=== PATIENT | female | born 1960 | race Caucasian/White ===

== ENCOUNTER 2019-07-04 13:52 | Outpatient (CLI) | payer OTHER, SELFPAY ==
--- NOTE | 2019-07-04 | XR_ITS ---
WS: [id number] LATERAL CERVICAL SPINE: 3 view. Lateral radiographs are performed in upright neutral, flexion and extension to the patient's toleranc e. HISTORY: DEGENERATIVE DISC DISEASE COMPARISON: None available. Limited evaluation of the cervical spine due to shoulders obscuring the lower cervical vertebrae. Nor mal alignment C1-C5. No instability is demonstrated. XR/XR cervical spine fl/ex [id number] IMPRESSION: No cervical instability from C1 to C5. Lower cervical vertebrae are obscured by the patient's shoulders.
== END 2019-07-04 13:53 | disposition home or self-care (01) ==
PROVIDERS: Family Provider Nurse Practitioner Family; PCP Nurse Practitioner Family; Visit Provider Nurse Practitioner Family
DX: M50.30 Other cervical disc degeneration, unspecified cervical region (principal)
CPT/HCPCS: 72040

== ENCOUNTER → 2020-01-19 11:23 | Outpatient (BNVA) | payer OTHER, SELFPAY | PROVIDERS: Family Provider Nurse Practitioner Family; PCP Nurse Practitioner Family; Visit Provider Nurse Practitioner Family | DX: E11.9 Type 2 diabetes mellitus without complications (principal); I10 Essential (primary) hypertension; E78.2 Mixed hyperlipidemia; M25.511 Pain in right shoulder; E55.9 Vitamin D deficiency, unspecified; R42 Dizziness and giddiness; R51 Headache; Z82.49 Family history of ischemic heart disease and other diseases of the circulatory system | CPT/HCPCS: 73030; 80053; 80061; 81001; 82306; 83036; 84443; 85025 ==

== ENCOUNTER 2020-01-26 08:00 | Outpatient (CLI) | payer OTHER, SELFPAY | END 2020-01-26 09:00 | disposition home or self-care (01) | LOC: RADWPI 02-17 16:47 | PROVIDERS: Family Provider Nurse Practitioner Family; PCP Nurse Practitioner Family; Visit Provider Licensed Practical Nurse | DX: R31.9 Hematuria, unspecified (principal) | CPT/HCPCS: 81000; 81003 ==

== ENCOUNTER 2020-05-03 06:00 | Outpatient (CLI) | payer OTHER, SELFPAY | END 2020-05-03 06:01 | disposition home or self-care (01) | LOC: RADSHAW 02-15 14:02 | PROVIDERS: Family Provider Nurse Practitioner Family; PCP Nurse Practitioner Family; Visit Provider Nurse Practitioner Family | DX: N39.0 Urinary tract infection, site not specified (principal); A49.9 Bacterial infection, unspecified | CPT/HCPCS: 80053; 81003 ==

== ENCOUNTER → 2020-07-22 15:03 | Outpatient (BNVA) | payer OTHER, SELFPAY | PROVIDERS: Family Provider Nurse Practitioner Family; PCP Nurse Practitioner Family; Visit Provider Nurse Practitioner Family | DX: M25.561 Pain in right knee (principal); M17.11 Unilateral primary osteoarthritis, right knee; I10 Essential (primary) hypertension; E55.9 Vitamin D deficiency, unspecified; R31.9 Hematuria, unspecified; G89.29 Other chronic pain; E78.2 Mixed hyperlipidemia; E11.9 Type 2 diabetes mellitus without complications; J44.9 Chronic obstructive pulmonary disease, unspecified | CPT/HCPCS: 73562; 80053; 80061; 81003; 82306; 83036; 84443; 84550; 85025; 87086 ==

== ENCOUNTER → 2021-02-09 11:53 | Outpatient (BNVA) | payer OTHER, SELFPAY | PROVIDERS: Family Provider Nurse Practitioner Family; PCP Nurse Practitioner Family; Visit Provider Nurse Practitioner Family | DX: M19.90 Unspecified osteoarthritis, unspecified site (principal); M25.50 Pain in unspecified joint; E55.9 Vitamin D deficiency, unspecified; T63.461A Toxic effect of venom of wasps, accidental (unintentional), initial encounter; G89.29 Other chronic pain; E78.2 Mixed hyperlipidemia; I10 Essential (primary) hypertension; E11.9 Type 2 diabetes mellitus without complications | CPT/HCPCS: 80053; 80061; 81003; 82306; 83036; 83735; 84100; 84443; 85025 ==

== ENCOUNTER 2021-04-01 14:15 | Outpatient (CLI) | payer OTHER, SELFPAY ==
--- NOTE | 2021-04-01 14:24 | XR_ITS ---
WS: [id number] RIBS LEFT TECHNIQUE: 3 views left ribs CLINICAL INFORMATION: R07.81 - Pleurodynia COMPARISON: None. FINDINGS: Osteopenia. Left ribs are normal in appearance. No definite visualized acute left rib fractures. Imag es are somewhat limited due to body habitus. Left lung is well aerated. Cardiomegaly. Hypertrophic changes thoracic spine. XR/XR ribs LT 2V* [id number] IMPRESSION: No visualized left rib fractures
== END 2021-04-01 14:16 | disposition home or self-care (01) ==
PROVIDERS: PCP Nurse Practitioner Family; Visit Provider Family Medicine
DX: R07.81 Pleurodynia (principal)
CPT/HCPCS: 71100

== ENCOUNTER → 2021-09-26 14:38 | Outpatient (BNVA) | payer OTHER, SELFPAY | PROVIDERS: PCP Nurse Practitioner Family; Visit Provider Nurse Practitioner Family | DX: J22 Unspecified acute lower respiratory infection (principal); E55.9 Vitamin D deficiency, unspecified; E11.9 Type 2 diabetes mellitus without complications; M19.90 Unspecified osteoarthritis, unspecified site; M25.50 Pain in unspecified joint; G89.29 Other chronic pain; E78.2 Mixed hyperlipidemia; I10 Essential (primary) hypertension | CPT/HCPCS: 80053; 80061; 81003; 82306; 83036; 84443; 85025 ==

== ENCOUNTER 2021-11-22 10:21 | Outpatient (CLI) | payer OTHER, SELFPAY ==
--- NOTE | 2021-11-22 10:30 | XR_ITS ---
WS: [id number] Exam: XR hand LT 2V [id number] Date/Time of Exam: 11/22/2021 10:37 AM Reason For Exam: M25.541 - Pain in joints of right hand No fracture or dislocation noted. Moderate degenerative changes in the DIP joints of the fifth second through the fifth fingers. Normal soft tissues. XR/XR hand LT 2V [id number] IMPRESSION: 1. Degenerative changes in the second through the fifth DIP joints. 2. No fracture.
--- NOTE | 2021-11-22 10:30 | XR_ITS ---
WS: [id number] Exam: XR hand RT 2V [id number] Date/Time of Exam: 11/22/2021 10:45 AM Reason For Exam: M25.541 - Pain in joints of right hand No fracture or dislocation. Mild degenerative changes in the DIP joints of the second through the fif th fingers. Normal soft tissues. XR/XR hand RT 2V [id number] IMPRESSION: 1. Degenerative changes in the DIP joints of the second through the fifth finge rs.
--- NOTE | 2021-11-22 10:30 | XR_ITS ---
WS: [id number] Exam: XR knee LT 3V* [id number] Date/Time of Exam: 11/22/2021 10:37 AM Reason For Exam: M25.541 - Pain in joints of right hand No fracture or dislocation. Mild degenerative thinning of the medial joint compartment. Spurring of t he posterior patella. No joint effusion seen. Marginal osteophytes along the distal femur and upper t ibia. XR/XR knee LT 3V* [id number] IMPRESSION: 1. No fracture or joint effusion. 2. Degenerative changes as detailed above.
--- NOTE | 2021-11-22 10:30 | XR_ITS ---
WS: [id number] Exam: XR knee RT 3V* [id number] Date/Time of Exam: 11/22/2021 10:37 AM Reason For Exam: M25.541 - Pain in joints of right hand Comparison 07/22/2020. No fracture or dislocation. There is degenerative narrowing of the medial joint compartment. Effusion in the suprapatellar bursa. Spurring of the posterior patella. XR/XR knee RT 3V* [id number] IMPRESSION: 1. Degenerative changes as noted above. No fracture noted. 2. Joint effusion in the suprapatellar bursa.
--- NOTE | 2021-11-22 10:30 | XR_ITS ---
WS: [id number] Exam: XR lumbar spine 2-3V* [id number] Date/Time of Exam: 11/22/2021 10:37 AM Reason For Exam: M25.541 - Pain in joints of right hand comparison 06/03/2019. No fracture or dislocation. Slight degenerative thinning of the L1-2, L4-5 and L5-S1 discs. Mild spon dylosis. Facet DJD at L4-5 and L5-S1. Slight levoscoliosis. 15 mm calcification identified in the reg ion of the left kidney and might represent a renal calculus. XR/XR lumbar spine 2-3V* [id number] IMPRESSION: 1. Degenerative changes and slight scoliosis. No fracture or malalignment. 2. 15 mm calcification seen in the left abdomen that might represent a renal ca lculus.
[2021-11-22 12:03] LABS: Erythrocyte Sedimentation Rate 8 mm/hr (0-15)
[2021-11-23 12:32] LABS: COMPLEMENT COMPONENT C3C 157 mg/dL (83-193); COMPLEMENT COMPONENT C4C 32 mg/dL (15-57)
[2021-11-23 14:03] LABS: CENTROMERE B ANTIBODY <1.0 NEG AI (<1.0 NEG); JO-1 ANTIBODY <1.0 NEG AI (<1.0 NEG); RNP ANTIBODY <1.0 NEG AI (<1.0 NEG); SCL-70 ANTIBODY <1.0 NEG AI (<1.0 NEG); SJOGREN'S ANTIBODY (SS-A) <1.0 NEG AI (<1.0 NEG); SM ANTIBODY <1.0 NEG AI (<1.0 NEG); SS-B <1.0 NEG AI (<1.0 NEG)
[2021-11-23 14:27] LABS: COMPLEMENT, TOTAL (CH50) >60 U/mL (31-60)
[2021-11-23 15:26] LABS: THYROID PEROXIDASE ANTIBODIES <1 IU/mL (<9)
[2021-11-23 17:42] LABS: ANA SCREEN, IFA NEGATIVE (NEGATIVE)
[2021-11-24 10:23] LABS: DNA AB (DS) CRITHIDIA,IFA NEGATIVE (NEGATIVE)
== END 2021-11-22 10:22 | disposition home or self-care (01) ==
PROVIDERS: PCP Family Medicine; Visit Provider Family Medicine
DX: G89.29 Other chronic pain (principal); M25.541 Pain in joints of right hand; M25.542 Pain in joints of left hand; M25.561 Pain in right knee; M25.562 Pain in left knee; M54.16 Radiculopathy, lumbar region; M54.42 Lumbago with sciatica, left side; M47.817 Spondylosis without myelopathy or radiculopathy, lumbosacral region; M25.461 Effusion, right knee; M76.51 Patellar tendinitis, right knee
CPT/HCPCS: 72100; 73120; 73562; 85651; 86160; 86162; 86235; 86255; 86376; 86431

== ENCOUNTER → 2022-02-09 14:25 | Outpatient (BNVA) | payer OTHER, SELFPAY | PROVIDERS: PCP Family Medicine; Visit Provider Internal Medicine | DX: M19.90 Unspecified osteoarthritis, unspecified site (principal); M45.0 Ankylosing spondylitis of multiple sites in spine; M25.9 Joint disorder, unspecified; M25.541 Pain in joints of right hand; M25.542 Pain in joints of left hand; L40.9 Psoriasis, unspecified; Z79.899 Other long term (current) drug therapy | CPT/HCPCS: 36415; 71046; 72072; 72202; 82310; 82550; 82607; 82728; 82784; 83516; 83735; 83970; 84100; 84155; 84165; 85651; 86140; 86618; 86666; 86704; 86757; 86803; 86812; 87340 ==

== ENCOUNTER 2023-01-15 15:52 | Emergency (ER) | payer OTHER, SELFPAY ==
[2023-01-15 16:09] VITALS: BP 124/61; PULSE 61; RESP 18; TEMP 36.4; O2SAT 95; BMI 38.2
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
[2023-01-15] MEDS: HYDROcodone-acetaminophen 10-325 mg Tablet 1 TAB PO (18:07)
[2023-01-15] MEDS: ketorolac 30 mg/mL INJ IM (18:08)
[2023-01-15] MEDS: dexamethasone 10 mg/mL INJ IM (18:09)
== END 2023-01-15 18:14 | disposition home or self-care (01) ==
PROVIDERS: Emergency Provider Nurse Practitioner Family; PCP Family Medicine
DX: M51.17 Intervertebral disc disorders with radiculopathy, lumbosacral region (principal); Z79.82 Long term (current) use of aspirin; Z87.891 Personal history of nicotine dependence; J44.9 Chronic obstructive pulmonary disease, unspecified; E11.9 Type 2 diabetes mellitus without complications; I10 Essential (primary) hypertension; E78.2 Mixed hyperlipidemia
CPT/HCPCS: 96372; 99284; J1100; J1885

== ENCOUNTER → 2023-03-02 17:41 | Outpatient (BNVA) | payer OTHER, SELFPAY | PROVIDERS: PCP Family Medicine; Visit Provider Emergency Medicine | DX: S69.91XA Unspecified injury of right wrist, hand and finger(s), initial encounter (principal); W29.4XXA Contact with nail gun, initial encounter; L03.113 Cellulitis of right upper limb; X58.XXXA Exposure to other specified factors, initial encounter | CPT/HCPCS: 73130 ==

== ENCOUNTER 2023-03-09 06:00 | Outpatient (CLI) | payer OTHER, SELFPAY | END 2023-03-09 06:01 | disposition home or self-care (01) | LOC: SOT 03-12 14:09 | PROVIDERS: PCP Family Medicine; Visit Provider Physician Assistant | DX: Z46.89 Encounter for fitting and adjustment of other specified devices (principal); T14.8XXA Other injury of unspecified body region, initial encounter | CPT/HCPCS: 97760; L3807 ==

== ENCOUNTER → 2023-03-09 09:21 | Outpatient (BNVA) | payer OTHER, SELFPAY | PROVIDERS: PCP Family Medicine; Referring Provider Emergency Medicine; Visit Provider Physician Assistant | DX: S62.111A Displaced fracture of triquetrum [cuneiform] bone, right wrist, initial encounter for closed fracture; W55.32XA Struck by other hoof stock, initial encounter | CPT/HCPCS: 73130 ==

== ENCOUNTER → 2023-07-03 14:50 | Outpatient (BNVA) | payer OTHER, SELFPAY | PROVIDERS: PCP Family Medicine; Visit Provider Nurse Practitioner Family | DX: E11.9 Type 2 diabetes mellitus without complications (principal); E78.2 Mixed hyperlipidemia; I10 Essential (primary) hypertension; M19.90 Unspecified osteoarthritis, unspecified site; E55.9 Vitamin D deficiency, unspecified; N20.0 Calculus of kidney; N13.8 Other obstructive and reflux uropathy; R10.9 Unspecified abdominal pain; Z87.442 Personal history of urinary calculi; H66.90 Otitis media, unspecified, unspecified ear | CPT/HCPCS: 80053; 80061; 81003; 82306; 83036; 84443; 85025; 85651; 86140 ==

== ENCOUNTER 2023-07-15 13:21 | Emergency (ER) | payer OTHER, SELFPAY ==
[2023-07-15 13:43] VITALS: BP 153/80; PULSE 79; RESP 16; TEMP 37.1; O2SAT 98; BMI 46.1
[2023-07-15 14:34] LABS: Basophils % 0.2 %; Eosinophils # 0.1 10^3/uL (0.0-0.8); Eosinophils % 0.9 %; Hematocrit 50.2 % (36-47); Lymphocytes # 0.3 10^3/uL (0.8-4.8); Lymphocytes % 3.7 %; Mean Corpuscular HGB Conc 31.7 g/dL (30-55); Mean Corpuscular Hemoglobin 29.9 pg (27-33); Mean Corpuscular Volume 94.4 fl (85-98); Mean Platelet Volume 11.8 fL (7.4-10.4); Monocytes # 0.4 10^3/uL (0.2-0.9); Monocytes % 4.5 %; Neutrophils # 8.32 10^3/uL (1.8-7.7); Neutrophils % 90.4 %; Nucleated Red Blood Cells % 0 %; Platelet Count 216 10^3/cmm (157-399); Red Blood Count 5.32 10^6/uL (3.85-5.65); Red Cell Distribution Width 12.8 % (12.1-15.1)
[2023-07-15 14:55] LABS: Alanine Aminotransferase 21 U/L (0-33); Albumin Level 3.9 g/dL (3.5-5.2); Alkaline Phosphatase 66 U/L (35-105); Blood Urea Nitrogen 28 mg/dL (8-23); Calcium 9.4 mg/dL (8.5-10.5); Carbon Dioxide 21 mmol/L (22-29); Chloride 100 mmol/L (98-107); Glomerular Filtration Rate 100.6 mL/min (90-130); Glucose 173 mg/dL (65-115); Lipase 19 U/L (13-60); Osmolality Calculated 290 mOsm/kg (285-295); Sodium 135 mmol/L (136-145); Total Bilirubin 0.6 mg/dL (0.15-1.2); Total Protein 6.9 g/dL (6.6-8.7)
[2023-07-15 14:57] LABS: Anion Gap 18.5 (5-19); Aspartate Amino Transferase 22 U/L (0-32); Potassium 4.5 mmol/L (3.5-5.1)
--- NOTE | 2023-07-15 15:48 | W.ED.ABDPA2 ---
HPI - Abdominal Pain General: Chief Complaint: Abdominal Pain Stated Complaint: abd pain, N/V/D Time Seen by Provider: 07/15/23 15:36 History of Present Illness: 63-year-old female presents emergency department with complaints of left lower quadrant abdominal pain. She states she started having several episodes of nausea and vomiting last night and is continued since this morning. She states she started having diarrhea last night as well and is continued she states the diarrhea is watery diarrhea without blood or mucus and has approximately 8 bowel movements. She states she did eat a steak last night and approximately 6 hours after eating the steak she started feeling nauseated and had several episodes of vomiting. She feels like she may have food poisoning from the steak. She states she is also having sulfur smelling odor when she burps. She states she has also been recently diagnosed with a 1.6 cm left kidney stone and she states that this does not feel like that type of pain. She states her abdominal pain is a 4 out of 10 intermittent cramping. She denies fevers chills or night sweats at present. Associated Symptoms: Reports diarrhea, nausea and vomiting Review of Systems General: Reports: 10 or more systems reviewed and unremarkable except in HPI and below GI: Reports: abdominal pain, nausea, vomiting and diarrhea [facility] ED PFSH: Medical History (Updated 07/15/23 @ 19:33 by Santana Champion MD) Otitis media Flank pain with history of urolithiasis Urinary tract obstruction due to kidney stone Lower respiratory infection Right leg pain Arthritis Chronic joint pain Hematuria COPD (chronic obstructive pulmonary disease) UTI (urinary tract infection), bacterial Acromioclavicular joint pain Acute joint pain Family history of aneurysm Headache AC joint pain Vertigo Mixed hyperlipidemia Essential hypertension Diabetes mellitus, type II Vitamin D deficiency Intervertebral disc 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 Vital signs as documented. No acute distress at present. Alert and oriented-to person, place, time and situation. Head, eyes, ears, nose, mouth, throat: Normocephalic, atraumatic. Pupils-equal, round, reactive to light. No scleral icterus. Normal-appearing external ears. Normal appearing nasal turbinates, no drainage. No obvious oral lesions, posterior oropharynx without erythema or exudates. Neck: Supple, trachea is midline, no lymphadenopathy, no jugular venous distension, thyromegaly, or carotid bruits. Carotid upstrokes are brisk bilaterally. Lungs: clear to auscultation to all lung thomas. Symmetrical rise and fall of chest, no obvious signs of increased work of breathing at present. Cardiac: Regular rate and rhythm, positive S1, S2. No murmurs, rubs or gallops that I can appreciate Abdomen: Soft, non-tender to palpation, normal active bowel sounds to all quadrants. No palpable masses, no organomegaly and abdominal bruits. Extremities: 2+ pulses in the upper extremities that are equal bilaterally, 2+ pulses in the lower extremities that are equal bilaterally. Non-edematous. Moves all extremities well, sensation to all extremities are noted. Skin: Warm, dry, intact. Course Vital Signs: Vital signs: Vital Signs Temperature 98.7 F 07/15/23 13:43 Pulse Rate 78 07/15/23 18:39 Respiratory Rate 16 07/15/23 13:43 Blood Pressure 133/73 07/15/23 18:39 Pulse Oximetry 94 07/15/23 18:39 Oxygen Delivery Me thod Room Air 07/15/23 18:39 MDM - Abdominal Pain Medical Decision Making 63-year-old female presents to the emergency department with complaints of abdominal pain she has type 2 diabetes and recent diagnosis of renal calculi to the left. I will obtain laboratory evaluation to include a CBC and CMP, lipase and we will provide Toradol pain medication as well as Zofran for nausea. I will obtain a CT scan with IV contrast given her complaints of abdominal cramping I do not suspect this is related to her recent diagnosis of kidney stone. Medical Records I reviewed the patient's medical records. Lab Data I reviewed the patient's lab results. 07/15/23 14:17 07/15/23 14:17 Labs/Radiology: Radiology Impressions Abdomen/Pelvis CT 07/15/23 15:55 IMPRESSION: 1. No acute findings within the abdomen or pelvis. 2. Multiple bilateral non-obstructing renal stones. 3. Additional nonemergent findings as above. COMMENTS: Consistent with the [employer]'s Incidental Findings Committee white paper (J Am Jessi Radiol 2018): Any incidental renal lesion less than 1 cm or classified as too small to characterize, or any incidental cystic renal lesion characterized as simple-appearing, is likely benign. No follow-up imaging is recommended for these lesions per consensus recommendations based on imaging criteria. Laboratory Results WBC 9.20 10^3/uL (3.29-11.43) 07/15/23 14:17 RBC 5.32 10^6/uL (3.85-5.65) 07/15/23 14:17 Hgb 15.90 g/dL (11.27-16.99) 07/15/23 14:17 Hct 50.2 % (36-47) H 07/15/23 14:17 MCV 94.4 fl (85-98) 07/15/23 14:17 MCH 29.9 pg (27-33) 07/15/23 14:17 MCHC 31.7 g/dL (30-55) 07/15/23 14:17 RDW 12.8 % (12.1-15.1) 07/15/23 14:17 Plt Count 216 10^3/cmm (157-399) 07/15/23 14:17 MPV 11.8 fL (7.4-10.4) H 07/15/23 14:17 Neut % (Auto) 90.4 % 07/15/23 14:17 Lymph % (Auto) 3.7 % 07/15/23 14:17 [place] % (Auto) 4.5 % 07/15/23 14:17 Eos % (Auto) 0.9 % 07/15/23 14:17 Baso % (Auto) 0.2 % 07/15/23 14:17 Neut # (Auto) 8.32 10^3/uL (1.8-7.7) H 07/15/23 14:17 Lymph # (Auto) 0.3 10^3/uL (0.8-4.8) L 07/15/23 14:17 [place] # (Auto) 0.4 10^3/uL (0.2-0.9) 07/15/23 14:17 Eos # (Auto) 0.1 10^3/uL (0.0-0.8) 07/15/23 14:17 Baso # (Auto) 0.0 10^3/uL (0.0-0.1) 07/15/23 14:17 Nucleated RBC % (auto) 0 % 07/15/23 14:17 Nucleated RBCs # 0.0 /100WBC 07/15/23 14:17 Sodium 135 mmol/L (136-145) L 07/15/23 14:17 Potassium 4.5 mmol/L (3.5-5.1) 07/15/23 14:17 Chloride 100 mmol/L (98-107) 07/15/23 14:17 Carbon Dioxide 21 mmol/L (22-29) L 07/15/23 14:17 Anion Gap 18.5 (5-19) 07/15/23 14:17 BUN 28 mg/dL (8-23) H 07/15/23 14:17 Creatinine 0.6 mg/dL (0.5-0.9) 07/15/23 14:17 GFR Calculation 100.6 mL/min (90-130) 07/15/23 14:17 Glucose 173 mg/dL (65-115) H 07/15/23 14:17 Calculated Osmolality 290 mOsm/kg (285-295) 07/15/23 14:17 Calcium 9.4 mg/dL (8.5-10.5) 07/15/23 14:17 Total Bilirubin 0.6 mg/dL (0.15-1.2) 07/15/23 14:17 AST 22 U/L (0-32) 07/15/23 14:17 ALT 21 U/L (0-33) 07/15/23 14:17 Alkaline Phosphatase 66 U/L (35-105) 07/15/23 14:17 Total Protein 6.9 g/dL (6.6-8.7) 07/15/23 14:17 Albumin 3.9 g/dL (3.5-5.2) 07/15/23 14:17 Globulin 3.0 g/dL (1.3-4.6) 07/15/23 14:17 Lipase 19 U/L (13-60) 07/15/23 14:17 Urine Color Yellow (Yellow) 07/15/23 16:10 Urine Appearance Sl hazy (CLEAR) A 07/15/23 16:10 Urine pH 6 (5-7) 07/15/23 16:10 Ur Specific [place] 1.015 (1.005-1.030) 07/15/23 16:10 Urine Protein Trace (Negative) 07/15/23 16:10 Urine Glucose (UA) Norm (Normal) 07/15/23 16:10 Urine Ketones Negative (Negative) 07/15/23 16:10 Urine Blood Neg (Negative) 07/15/23 16:10 Urine Nitrate Negative (Negative) 07/15/23 16:10 Urine Bilirubin Neg (Negative) 07/15/23 16:10 Urine Urobilinogen Norm mg/dL (Negative) 07/15/23 16:10 Ur Leukocyte Esterase Negative (Negative) 07/15/23 16:10 Urine RBC None /hpf (0-2) 07/15/23 16:10 Urine WBC 5-10 /hpf (0-5) H 07/15/23 16:10 Ur Squamous Epith Cells 5-10 /hpf (0-5) H 07/15/23 16:10 Amorphous Sediment Not Reportable 07/15/23 16:10 Urine Bacteria 2+ /hpf (NONE) H 07/15/23 16:10 All radiology interpretation(s) finalized by discharge Discharge Plan Discharge Patient Disposition: Home Clinical Impression: Abdominal pain, Kidney calculi, Diarrhea Condition: Stable Prescriptions: No Action aspirin 81 mg tablet,delayed release (DR/EC) 81 mg PO DAILY albuterol sulfate 90 mcg/actuation HFA aerosol inhaler 2 puff inhalation Q6H PRN (Reason: shortness of breath or wheezing) Qty: 8.5 5RF Rx Instructions: 340 b (DME) fastform splint See Rx Instructions .Route .MEDSUPPLY Qty: 1 0RF Rx Instructions: As directed folic acid 1 mg tablet 1 mg PO DAILY Qty: 90 0RF tamsulosin 0.4 mg capsule PO ondansetron 8 mg tablet,disintegrating 8 mg PO TID PRN (Reason: nausea and vomiting) hydrocodone-acetaminophen 10-325 mg tablet 1 tab PO BID PRN (Reason: pain) 5 Days Qty: 10 0RF ciprofloxacin HCl [Cipro] 250 mg tablet 250 mg PO BID 10 Days Qty: 20 0RF Ozempic 0.25 mg or 0.5 mg (2 mg/3 mL) pen injector 0.25 mg SUBCUT ONCE 28 Days Qty: 3 1RF (DME) pen needle, diabetic [Comfort EZ Pen [place]] 33 gauge x 5/32 needle See Rx Instructions .Route Qty: 100 0RF Rx Instructions: As directed meclizine 25 mg tablet 25 mg PO BID PRN (Reason: dizziness) 30 Days Qty: 60 0RF naproxen 250 mg tablet See Rx Instructions .ROUTE .COMPLEX Qty: 180 0RF Dose Instruction: TAKE 1 TABLET BY MOUTH TWICE DAILY NEEDED FOR PAIN Rx Instructions: TAKE 1 TABLET BY MOUTH TWICE DAILY NEEDED FOR PAIN cholecalciferol (vitamin D3) 1,250 mcg (50,000 unit) capsule 1,250 mcg PO .weekly 90 Days Qty: 12 2RF gabapentin 800 mg tablet See Rx Instructions .ROUTE .COMPLEX Qty: 90 0RF Dose Instruction: TAKE 1 TABLET BY MOUTH THREE TIMES DAILY Rx Instructions: TAKE 1 TABLET BY MOUTH THREE TIMES DAILY duloxetine [Cymbalta] 60 mg capsule,delayed release(DR/EC) 60 mg PO DAILY Qty: 60 2RF fenofibrate 160 mg tablet See Rx Instructions .ROUTE .COMPLEX Qty: 90 0RF Dose Instruction: TAKE 1 TABLET BY MOUTH DAILY Rx Instructions: TAKE 1 TABLET BY MOUTH DAILY lisinopril-hydrochlorothiazide 20-25 mg tablet See Rx Instructions .ROUTE .COMPLEX Qty: 90 0RF Dose Instruction: TAKE 1 TABLET BY MOUTH DAILY Rx Instructions: TAKE 1 TABLET BY MOUTH DAILY lovastatin 20 mg tablet See Rx Instructions .ROUTE .COMPLEX Qty: 90 1RF Dose Instruction: TAKE 1 TABLET BY MOUTH DAILY Rx Instructions: TAKE 1 TABLET BY MOUTH DAILY fluticasone propion-salmeterol [Wixela Inhub] 250-50 mcg/dose blister with device See Rx Instructions .ROUTE .COMPLEX Qty: 60 0RF Dose Instruction: INHALE 1 PUFF BY MOUTH TWICE DAILY Rx Instructions: INHALE 1 PUFF BY MOUTH TWICE DAILY Discharge Orders: Discharge ED (Routine); Ordered 07/15/23 Ordered By: Santana Champion Referrals: MIKEY Palumbo, MANAGER OF HOSPITAL [Primary Care Provider] - Discharge Diet: Advance as tolerated Discharge Activity: Resume usual activity Patient Instructions: Abdominal Pain (ED), Opioid Safety, Pain Management Activity Restrictions/Additional Instructions: Activity Restrictions/Additional Instructions: Thank you for choosing [facility] for your healthcare needs today. Please realize that you were seen in the Emergency Department and that we are providing you with an emergency medical screening exam and this may not be a complete and all inclusive of all the testing and or medical work-up that you may need to determine your ailment or severity of your illness. It is very important that you follow-up as instructed with your Primary care provider or Specialist for additional evaluation and to discuss your medical treatment plan. You may return to the Emergency Department should you have concerns or if your condition changes or worsens in any way. Coding Level of Care Code ED Executive Marketing Assistant for Jamila Forte
--- NOTE | 2023-07-15 15:55 | CTR_ITS ---
PROCEDURE INFORMATION: Exam: CT Abdomen And Pelvis With Contrast Exam date and time: 07/15/2023 4:42 PM Age: 63 years old Clinical indication: Abdominal pain; Generalized; Prior surgery; Surgery date: 6+ months; Surgery type: Gb; Additional info: Abd pain TECHNIQUE: Imaging protocol: Computed tomography of the abdomen and pelvis with contrast. Radiation optimization: All CT scans at this facility use at least one of these dose optimization techniques: automated exposure control; mA and/or kV adjustment per patient size (includes targeted exams where dose is matched to clinical indication); or iterative reconstruction. Contrast material: OMNI 350; Contrast volume: 100 ml; Contrast route: INTRAVENOUS (IV); COMPARISON: CR XR hip BI m 5V wo/w pel* [id number] 06/03/2019 3:13 PM RADIATION DOSE METRICS: Total DLP (mGy-cm): 1259.39 FINDINGS: Lungs: Lung bases are clear. Liver: Liver is mildly enlarged with diffuse fatty infiltration present. Gallbladder and bile ducts: Gallbladder has been removed. Bile ducts are not appreciably dilated. Pancreas: Unremarkable. Main pancreatic duct is not significantly dilated. Spleen: Normal. No splenomegaly. Adrenal glands: Normal. No mass. Kidneys and ureters: 1.3 cm nonobstructing stone within the left renal pelvis. Multiple small nonobstructing calculi within the right renal hilum. Few tiny cortical cysts both kidneys. Stomach and bowel: Scattered diverticuli large bowel without evidence of diverticulitis. Appendix: No evidence of appendicitis. Intraperitoneal space: Unremarkable. No free air. No significant fluid collection. Vasculature: Scattered atherosclerotic changes of the abdominal aorta and iliac vessels. No aortic aneurysm. Lymph nodes: Unremarkable. No enlarged lymph nodes. Urinary bladder: Unremarkable as visualized. Reproductive: Uterus has been removed. Bones/joints: Mild-moderate multilevel degenerative changes throughout the lumbar spine. No acute bony abnormalities. Soft tissues: Unremarkable. CT/CT abdomen pelvis w con* [id number] IMPRESSION: 1. No acute findings within the abdomen or pelvis. 2. Multiple bilateral non-obstructing renal stones. 3. Additional nonemergent findings as above. COMMENTS: Consistent with the [employer]'s Incidental Findings Committee white paper (J Am Jessi Radiol 2018): Any incidental renal lesion less than 1 cm or classified as too small to characterize, or any incidental cystic renal lesion characterized as simple-appearing, is likely benign. No follow-up imaging is recommended for these lesions per consensus recommendations based on imaging criteria.
[2023-07-15] MEDS: sodium chloride 0.9% 1,000 ML 999 ML IV (16:05)
--- NOTE | 2023-07-15 16:08 | PC.NURSE ---
ASSUMED CARE AT 1550
[2023-07-15] MEDS: ondansetron 2 mg/ML SDV 2 mL 4 MG IVP (16:11)
[2023-07-15] MEDS: ketorolac 30 mg/mL INJ IVP (16:11)
[2023-07-15 16:15] VITALS: BP 129/76; PULSE 74; O2SAT 98
[2023-07-15 16:27] LABS: Protein Urine Trace (Negative); Specific Gravity, Urine 1.015 (1.005-1.030); Urine Appearance SL Hazy (CLEAR); Urine Color Yellow (Yellow); pH Urine 6 (5-7)
[2023-07-15 16:28] LABS: Add Urine Culture? No; Add Urine Microscopic? YES; Bacteria Urine 2+ /hpf; Bilirubin Urine Neg (Negative); Blood Urine Neg (Negative); Glucose Urine UA Norm (Normal); Ketones Urine Negative (Negative); Leukocyte Esterase Urine Negative (Negative); Nitrate Urine Negative (Negative); Urobilinogen Urine Norm (Negative)
[2023-07-15 16:30] VITALS: BP 149/62; PULSE 78; O2SAT 94
[2023-07-15] MEDS: iohexol 350 mg/mL 500 mL Btl (per mL) IV (16:45)
[2023-07-15 17:47] VITALS: BP 152/70; PULSE 82; O2SAT 94
[2023-07-15 18:39] VITALS: BP 133/73; PULSE 78; O2SAT 94
[2023-07-15] MEDS: simethicone 80 mg Chew PO (19:55)
[2023-07-15 19:57] VITALS: PULSE 76; RESP 18; O2SAT 94
== END 2023-07-15 19:57 | disposition home or self-care (01) ==
PROVIDERS: Physician Assistant; Emergency Provider Internal Medicine; PCP Nurse Practitioner Family
DX: N20.0 Calculus of kidney (principal); R19.7 Diarrhea, unspecified; Z79.82 Long term (current) use of aspirin; Z87.891 Personal history of nicotine dependence; Z87.442 Personal history of urinary calculi; J44.9 Chronic obstructive pulmonary disease, unspecified; E78.2 Mixed hyperlipidemia; I10 Essential (primary) hypertension; E11.9 Type 2 diabetes mellitus without complications
CPT/HCPCS: 36415; 74177; 80053; 81001; 83690; 85025; 96361; 96374; 96375; 99285; J1885; J2405; J7030; Q9967

== ENCOUNTER → 2024-03-24 16:00 | Outpatient (BNVA) | payer OTHER, MEDICARE, SELFPAY | PROVIDERS: PCP Nurse Practitioner Family; Visit Provider Nurse Practitioner Family | DX: I10 Essential (primary) hypertension (principal); E78.2 Mixed hyperlipidemia; E11.9 Type 2 diabetes mellitus without complications; E55.9 Vitamin D deficiency, unspecified; M10.9 Gout, unspecified | CPT/HCPCS: 80053; 80061; 81003; 82306; 83036; 83735; 84100; 84443; 84550; 85025; 85651; 86140 ==

== ENCOUNTER 2024-04-01 08:10 | Outpatient (CLI) | payer MEDICARE, OTHER, SELFPAY ==
--- NOTE | 2024-04-01 08:16 | XR_ITS ---
WS: [id number] Exam: XR lumbar spine 6V w f/e [id number] Date/Time of Exam: 04/01/2024 8:37 AM Reason For Exam: S39.012A - Strain of muscle, fascia and tendon of lower b... No fracture or dislocation. Degenerative disc changes and spondylosis at all levels. Facet DJD at all levels. No significant flexion or extension instability. Mild levoscoliosis. XR/XR lumbar spine 6V w f/e [id number] IMPRESSION: 1. Degenerative changes and mild levoscoliosis. 2. No flexion or extension instability identified.
== END 2024-04-01 08:11 | disposition home or self-care (01) ==
LOC: RAD 08:13
PROVIDERS: PCP Nurse Practitioner Family; Visit Provider Nurse Practitioner Family
DX: M51.369 Other intervertebral disc degeneration, lumbar region without mention of lumbar back pain or lower extremity pain (principal); M47.896 Other spondylosis, lumbar region
CPT/HCPCS: 72114

== ENCOUNTER → 2024-04-28 15:23 | Outpatient (BNVA) | payer MEDICARE, OTHER, SELFPAY | PROVIDERS: PCP Nurse Practitioner Family; Referring Provider Nurse Practitioner Family; Visit Provider Dermatology | DX: L73.8 Other specified follicular disorders (principal); D18.01 Hemangioma of skin and subcutaneous tissue; L82.1 Other seborrheic keratosis; L81.4 Other melanin hyperpigmentation; D48.5 Neoplasm of uncertain behavior of skin; L57.8 Other skin changes due to chronic exposure to nonionizing radiation; D23.5 Other benign neoplasm of skin of trunk; L91.8 Other hypertrophic disorders of the skin | CPT/HCPCS: 11102; 11200; 99203 ==

== ENCOUNTER 2024-06-19 11:51 | Observation (INO) | payer MEDICARE, OTHER, SELFPAY ==
[2024-06-19] VITALS (12 sets, daily range): BP systolic 129–168; BP diastolic 70–99; PULSE 67–105; RESP 16–24; TEMP 36.5–36.8; O2SAT 90–97; BMI 49.8
--- NOTE | 2024-06-19 12:04 | CT_ITS ---
WS: [id number] CT ABDOMEN PELVIS TECHNIQUE: Noncontrast CT of the abdomen and pelvis with coronal and sagittal reformatted images. CLINICAL INFORMATION: Left flank pain, history of kidney stones COMPARISON: 07/15/2023 DLP: 1136.[address] scans at [facility] use at least one of these dose optimization techniques: automated e xposure control; mA and/or kV adjustment per patient size (includes targeted exams where dose is matc hed to clinical indication); or iterative reconstruction. FINDINGS: Obstructing LEFT proximal ureteral calculus at the LEFT UPJ measuring 6 mm. This is new com pared to previous. Mild LEFT perinephric stranding and edema. Moderate LEFT hydronephrosis. Distal LE FT ureter is decompressed. Nonobstructing RIGHT renal parenchymal and calyceal tip calculi. No obstructing RIGHT renal or ureter al calculi. Lung bases are well aerated. Hepatomegaly. Diffuse fatty infiltration of the liver. Cholecystectomy c lips. Normal GE junction. Adrenal glands are normal. Noncontrast pancreas is normal. Normal noncontra st spleen. Prior appendectomy. Normal caliber abdominal aorta. Sigmoid diverticulosis. No evidence of acute diverticulitis. No evidence of high-grade small or large bowel obstruction. Moderate spondylitic changes lumbar spine. Disc narrowing worse L4-L5 and L5-S1. Prior hysterectomy. Prior cholecystectomy. CT/CT kidney stone [id number] IMPRESSION: 1. Obstructing 6 mm calculus LEFT UPJ with moderate LEFT hydronephrosis. Infla mmatory stranding and edema about the LEFT kidney. 2. No obstructing RIGHT renal or ureteral calculi. 3. Prior hysterectomy and cholecystectomy. 4. Hepatomegaly with diffuse fatty infiltration of the liver. Notified Dario Moon DO at 06/19/2024 1:12 PM.
[2024-06-19 12:47] LABS: Basophils # 0.1 10^3/uL (0.0-0.1); Basophils % 0.5 %; Eosinophils # 0.2 10^3/uL (0.0-0.8); Eosinophils % 1.4 %; Hematocrit 48.9 % (36-47); Lymphocytes # 1.6 10^3/uL (0.8-4.8); Lymphocytes % 13.5 %; Mean Corpuscular HGB Conc 31.9 g/dL (30-55); Mean Corpuscular Hemoglobin 29.8 pg (27-33); Mean Corpuscular Volume 93.5 fl (85-98); Mean Platelet Volume 11.5 fL (7.4-10.4); Monocytes # 0.9 10^3/uL (0.2-0.9); Neutrophils # 9.41 10^3/uL (1.8-7.7); Neutrophils % 77.3 %; Nucleated Red Blood Cells % 0 %; Platelet Count 245 10^3/cmm (157-399); Red Blood Count 5.23 10^6/uL (3.85-5.65); Red Cell Distribution Width 12.7 % (12.1-15.1); White Blood Count 12.17 10^3/uL (3.29-11.43)
[2024-06-19 13:09] LABS: Alanine Aminotransferase 21 U/L (0-33); Albumin Level 4.3 g/dL (3.5-5.2); Alkaline Phosphatase 68 U/L (35-105); Anion Gap 13.8 (5-19); Aspartate Amino Transferase 22 U/L (0-32); Blood Urea Nitrogen 25 mg/dL (8-23); Calcium 9.6 mg/dL (8.5-10.5); Carbon Dioxide 28 mmol/L (22-29); Chloride 102 mmol/L (98-107); Creatinine Clr Calc Pharmacy 88.0503; Globulin 2.9 g/dL (1.3-4.6); Glucose 158 mg/dL (65-115); Osmolality Calculated 298 mOsm/kg (285-295); Potassium 3.8 mmol/L (3.5-5.1); Sodium 140 mmol/L (136-145); Total Bilirubin 0.4 mg/dL (0.15-1.2); Total Protein 7.2 g/dL (6.6-8.7)
[2024-06-19 13:21] LABS: Bilirubin Urine Negative (Negative); Blood Urine Negative (Negative); Glucose Urine UA Negative (Normal); Ketones Urine Negative (Negative); Leukocyte Esterase Urine Negative (Negative); Nitrate Urine Negative (Negative); Protein Urine Trace (Negative); Urine Appearance Clear (CLEAR); Urine Color Yellow (Yellow); pH Urine 7.5 (5-7)
[2024-06-19 13:24] LABS: Add Urine Microscopic? YES; Bacteria Urine Trace /hpf; Hyaline Casts Urine 4.11 /lpf; WBC Urine 0-5 /hpf (0-5)
--- NOTE | 2024-06-19 13:34 | ED_ITS ---
HPI - Female Genitourinary 2 General: Chief complaint: Urogenital-Female Stated complaint: kidney problems Time Seen by Provider: 06/19/24 13:08 Source: patient Mode of arrival: ambulatory Limitations: no limitations History of Present Illness: Patient is a 64-year-old female with past medical history of kidney stones who presents the emergency department complaining of acute onset left back and flank pain beginning this morning. She is reporting 10/10 pain, sharp and shooting and comparable to kidney stones in the past. She is also had lithotripsy procedures performed for kidney stones, she sees urology Dr. Zhang. Reporting associated nausea, denies any dysuria or hematuria, abdominal pain at this time, lightheadedness or dizziness. Requesting something for pain. Oxygen here has been 89 to 91%, states that she is always having breathing difficulties and this is not new for her, she is laying on her back flat at this time and we will adjust her position accordingly once we get her pain in control. MD elicited complaint: back pain and flank pain Pertinent past history: other (Kidney stones) Onset (ago): hour(s) Location of symptoms: low back and flank Severity: severe Severity scale (1-10): 10 Quality of pain: sharp Consistency: constant Vaginal discharge: none Vaginal bleeding: none Associated symptoms: Reports nausea; Deny abdominal pain or headache(s) Treatment prior to arrival: none Related Data Home Medications Medication Instructions Recorded Confirmed aspirin 81 mg tablet,delayed 81 mg PO DAILY 09/26/19 06/19/24 release multivitamin (Daily Multi-Vitamin 1 tab PO DAILY 05/21/24 06/19/24 tablet) albuterol sulfate 90 mcg/actuation 2 puff inhalation Q6H 06/19/24 06/19/24 aerosol inhaler dulaglutide 0.75 mg/0.5 mL 0.75 mg SUBCUT Q7D 06/19/24 06/19/24 subcutaneous pen injector (Trulicity) fenofibrate 160 mg tablet 160 mg PO DAILY 06/19/24 06/19/24 fluticasone 250 mcg-salmeterol 50 1 inh inhalation BID 06/19/24 06/19/24 mcg/dose blistr powdr for inhalation (Wixela Inhub) gabapentin 800 mg tablet 800 mg PO TID 06/19/24 06/19/24 lisinopril 20 1 tab PO DAILY 06/19/24 06/19/24 mg-hydrochlorothiazide 25 mg tablet lovastatin 20 mg tablet 20 mg PO DAILY 06/19/24 06/19/24 Previous Rx's Medication Instructions Recorded meclizine 25 mg tablet 25 mg PO BID PRN dizziness 30 days 02/23/20 #60 tabs fastform splint #1 ea 03/09/23 pen needle, diabetic 33 gauge x #100 ea 07/12/23 (Comfort EZ [place]) cholecalciferol (vitamin D3) 1,250 1,250 mcg PO .weekly 90 days #12 03/19/24 mcg (50,000 unit) capsule caps duloxetine 60 mg capsule,delayed 60 mg PO DAILY #60 caps 04/21/24 release (Cymbalta) blood-glucose meter #1 ea 04/24/24 Allergies Allergy/AdvReac Type Severity Reaction Status Date / Time ampicillin Allergy unknown Verified 06/19/24 12:00 Review of Systems 2 General: Reports: 10 or more systems reviewed and unremarkable except in HPI and below Const: Denies: fever(s), chills, change in appetite, change in weight or diaphoresis ENMT: Denies: throat pain or hoarseness Card: Denies: chest pain, palpitations or lightheadedness Resp: Denies: dyspnea, productive cough or wheezing GI: Reports: nausea; Denies: abdominal pain, vomiting, diarrhea, constipation, bloating, change in stool character or hematochezia : Reports: flank pain; Denies: difficulty voiding, dysuria, urinary frequency, urinary urgency or hematuria Musc: Reports: back pain; Denies: neck pain Skin/Breast: Denies: rash or new lesions Neuro: Denies: headache(s) or dizziness PFSH ED 2 PFSH: Medical History Lumbar disc disease with radiculopathy DDD (degenerative disc disease), lumbar Lumbar radiculopathy Enrolled in chronic care management Gout Lumbar strain Epidermoid cyst Otitis media Flank pain with history of urolithiasis Urinary tract obstruction due to kidney stone Lower respiratory infection Right leg pain Arthritis Chronic joint pain Hematuria COPD (chronic obstructive pulmonary disease) UTI (urinary tract infection), bacterial Acromioclavicular joint pain Acute joint pain Family history of aneurysm Headache AC joint pain Vertigo Mixed hyperlipidemia Essential hypertension Diabetes mellitus, type II Vitamin D deficiency Intervertebral disc disorder with radiculopathy of lumbosacral region Cervical disc disorder with myelopathy of mid-cervical region Surgical History History of tubal ligation History of hysterectomy History of skin graft History of nasal surgery removal of excess cartilage from sinus cavity Family History Mother Hypertension Brother Aneurysm Social History Smoking and tobacco/nicotine status: former use of tobacco/nicotine Alcohol intake: never Substance/Drug Use: never Household members: spouse Marital status: Current occupational status: unemployed Physical Exam 2 Const: COMMON NORMALS: no acute distress, no limitations and well nourished GENERAL APPEARANCE: cooperative NUTRITIONAL APPEARANCE: obese morbidly obese ORIENTATION/CONSCIOUSNESS: Yes awake OTHER: Uncomfortable appearing secondary to pain Eye: COMMON NORMALS: Equal, round and reactive pupils present, EOMs intact bilaterally, conjunctivae normal and normal visual thomas by confrontation C ONJUNCTIVA: Yes conjunctivae normal PUPIL: Yes Equal, round and reactive pupils present Neck/C-Spine: COMMON NORMALS: full ROM, supple and no JVD Resp: COMMON NORMALS: normal respiratory effort, No retractions, No use of accessory muscles and clear to auscultation bilaterally AUSCULTATION: clear to auscultation bilaterally, no crackles, no rales, no rhonchi and no wheezes Cardio: COMMON NORMALS: no JVD, regular rate, regular rhythm, S1 normal heart sound present, S2 normal heart sound present, No gallops present (Cardio), No clicks present (Cardio), No murmurs present (Cardio), No rub (Cardio) and Peripheral pulses 2+ throughout RATE: regular rate RHYTHM: regular rhythm HEART SOUNDS: S1 normal heart sound present and S2 normal heart sound present PERIPHERAL PULSES: Peripheral pulses 2+ throughout GI: COMMON NORMALS: Normal to inspection, nondistended, normoactive bowel sounds present, Soft to palpation, non-tender, No hepatosplenomegaly present and no masses AUSCULTATION: Yes normoactive bowel sounds PALPATION: Yes Soft to palpation, No Guarding due to palpation present (GI), No Rigid due to palpation and Yes No hepatosplenomegaly present RECTAL EXAM: deferred : BLADDER/KIDNEY EXAM: Yes CVA tenderness on the left Back/Pelvis: GENERAL BACK: Yes CVA tenderness CVA tenderness: left Extremity: COMMON NORMALS: normal to inspection and full ROM Psych: COMMON NORMALS: mental status grossly normal, cooperative and speech normal SPEECH: Yes normal speech Skin: COMMON NORMALS: no rashes or lesions noted GENERAL SKIN EXAM: no rashes or lesions noted Course 2 Vital Signs: Vital signs: Vital Signs Temperature 97.7 F 06/19/24 11:57 Pulse Rate 68 06/19/24 15:30 Respiratory Rate 16 06/19/24 15:00 Blood Pressure 139/99 06/19/24 15:00 Pulse Oximetry 91 06/19/24 15:30 Oxygen Delivery Me thod Nasal Cannula 06/19/24 15:30 Oxygen Flow Rate 3 06/19/24 15:30 MDM - Female Medical Decision Making Patient had presented with acute onset left flank and back pain, history of kidney stones. On CT she did have evidence of a obstructing 6 mm stone at the UPJ with some hydronephrosis, though her urinalysis did not show any signs of infection. Still I consulted urology at [facility], where she sees a Dr. Milton, and spoke with their on-call urologist Dr. eVnces who had stated this patient could follow-up with them tomorrow for routine reevaluation as long as we can control her pain and nausea. Her pain and nausea have been well-controlled here in the emergency department, however she has been hypoxic on room air, dropping as low as 77%. She does report a history of COPD and has had increased production of cough recently, and states she has had a little bit more swelling than normal. Her chest x-ray did not show any pneumonia, mild cardiomegaly. I spoke with Dr. Barber, hospitalist, who agrees to accept the patient for observation. Dr. Moon putting in admit orders at this time. Lab Data 06/19/24 12:27 06/19/24 12:27 Radiology Impressions Abdomen/Pelvis CT 06/19/24 12:04 IMPRESSION: 1. Obstructing 6 mm calculus LEFT UPJ with moderate LEFT hydronephrosis. Inflammatory stranding and edema about the LEFT kidney. 2. No obstructing RIGHT renal or ureteral calculi. 3. Prior hysterectomy and cholecystectomy. 4. Hepatomegaly with diffuse fatty infiltration of the liver. Notified Dario Moon DO at 06/19/2024 1:12 PM. Chest X-Ray 06/19/24 14:50 Impression: Mild cardiomegaly. Laboratory Results WBC 12.17 10^3/uL (3.29-11.43) H 06/19/24 12:27 RBC 5.23 10^6/uL (3.85-5.65) 06/19/24 12:27 Hgb 15.60 g/dL (11.27-16.99) 06/19/24 12:27 Hct 48.9 % (36-47) H 06/19/24 12: MCV 93.5 fl (85-98) 06/19/24 12: MCH 29.8 pg (27-33) 06/19/24 12: MCHC 31.9 g/dL (30-55) 06/19/24 12: RDW 12.7 % (12.1-15.1) 06/19/24 12: Plt Count 245 10^3/cmm (157-399) 06/19/24 12: MPV 11.5 fL (7.4-10.4) H 06/19/24 12: Neut % (Auto) 77.3 % 06/19/24 12: Lymph % (Auto) 13.5 % 06/19/24 12: [place] % (Auto) 7.0 % 06/19/24 12: Eos % (Auto) 1.4 % 06/19/24 12:27 Baso % (Auto) 0.5 % 06/19/24 12:27 Neut # (Auto) 9.41 10^3/uL (1.8-7.7) H 06/19/24 12:27 Lymph # (Auto) 1.6 10^3/uL (0.8-4.8) 06/19/24 12:27 [place] # (Auto) 0.9 10^3/uL (0.2-0.9) 06/19/24 12: Eos # (Auto) 0.2 10^3/uL (0.0-0.8) 06/19/24 12:27 Baso # (Auto) 0.1 10^3/uL (0.0-0.1) 06/19/24 12:27 Nucleated RBC % (auto) 0 % 06/19/24 12: Nucleated RBCs # 0.0 /100WBC 06/19/24 12:27 Sodium 140 mmol/L (136-145) 06/19/24 12:27 Potassium 3.8 mmol/L (3.5-5.1) 06/19/24 12:27 Chloride 102 mmol/L (98-107) 06/19/24 12:27 Carbon Dioxide 28 mmol/L (22-29) 06/19/24 12:27 Anion Gap 13.8 (5-19) 06/19/24 12:27 BUN 25 mg/dL (8-23) H 06/19/24 12:27 Creatinine 0.8 mg/dL (0.5-0.9) 06/19/24 12:27 GFR Calculation 72.0 mL/min (90-130) L 06/19/24 12:27 Glucose 158 mg/dL (65-115) H 06/19/24 12:27 Calculated Osmolality 298 mOsm/kg (285-295) H 06/19/24 12:27 Calcium 9.6 mg/dL (8.5-10.5) 06/19/24 12:27 Total Bilirubin 0.4 mg/dL (0.15-1.2) 06/19/24 12: AST 22 U/L (0-32) 06/19/24 12: ALT 21 U/L (0-33) 06/19/24 12:27 Alkaline Phosphatase 68 U/L (35-105) 06/19/24 12:27 Total Protein 7.2 g/dL (6.6-8.7) 06/19/24 12:27 Albumin 4.3 g/dL (3.5-5.2) 06/19/24 12:27 Globulin 2.9 g/dL (1.3-4.6) 06/19/24 12:27 Urine Color Yellow (Yellow) 06/19/24 12:15 Urine Appearance Clear (CLEAR) 06/19/24 12:15 Urine pH 7.5 (5-7) 06/19/24 12:15 Ur Specific [place] 1.020 (1.005-1.030) 06/19/24 12:15 Urine Protein Trace (Negative) A 06/19/24 12:15 Urine Glucose (UA) Negative (Normal) 06/19/24 12:15 Urine Ketones Negative (Negative) 06/19/24 12:15 Urine Blood Negative (Negative) 06/19/24 12:15 Urine Nitrate Negative (Negative) 06/19/24 12:15 Urine Bilirubin Negative (Negative) 06/19/24 12:15 Urine Urobilinogen 1.0 mg/dL (Negative) 06/19/24 12:15 Ur Leukocyte Esterase Negative (Negative) 06/19/24 12:15 Urine RBC 3-5 /hpf (0-2) 06/19/24 12:15 Urine WBC 0-5 /hpf (0-5) 06/19/24 12:15 Ur Squamous Epith Cells 6-10 /hpf (0-5) 06/19/24 12:15 Amorphous Sediment Not Reportable 06/19/24 12:15 Urine Bacteria Trace /hpf (NONE) 06/19/24 12:15 Hyaline Casts 4.11 /lpf 06/19/24 12:15 All radiology interpretation(s) finalized by discharge Discharge Plan Discharge Patient Disposition: Placed in Observation Clinical Impression: COPD exacerbation, Left nephrolithiasis Coding Level of Care Code ED Casting Machine Set Up Operator for Jamila Forte
[2024-06-19] MEDS: ondansetron 2 mg/ML SDV 2 mL 8 MG IVP (14:02)
[2024-06-19] MEDS: HYDROmorphone 1 mg/mL INJ 1 mL IVP (14:03)
--- NOTE | 2024-06-19 14:50 | XR_ITS ---
WS: [id number] Portable AP upright chest, 06/19/2024 Clinical Data: hypoxia Comparison: Two-view chest, 02/09/2022 Findings: No nodules, masses or effusions are seen. The heart is slightly enlarged. The pulmonary vas cularity is not increased. No pneumonia or pneumothorax is seen. XR/XR chest 1V portable [id number] Impression: Mild cardiomegaly.
[2024-06-19] MEDS: tamsulosin 0.4 mg Capsule PO (14:54)
--- NOTE | 2024-06-19 15:34 | PC.NURSE ---
pt O2 has varied, has at times dropped to 80% when pt was at rest in bed with eyes closed. pt put on 3l nc lynn dennis at this time.
[2024-06-19 15:44] LABS: Covid PCR NEGATIVE (Negative); Influenza A NEGATIVE (Negative); Influenza B NEGATIVE (Negative); Respiratory Syncytial Virus Ce NEGATIVE (Negative)
[2024-06-19 16:20] LABS: NT Pro B Type Natriuretic Pept 52 pg/mL (0-125)
--- NOTE | 2024-06-19 16:57 | USCV_ITS ---
Justine Oliveira Age: 64 Gender: F : 1960 Exam Date: 06/19/2024 19:29 Ordering Phys: Jose Angel Laboy MD Technologist: KENNEDY Exam Location: [facility] – [place], [place] Indication: hypoxia, [place], cardiomegaly BP: 139 / 99 HR: 74 Rhythm: Sinus arrythmia Technical Quality: Adequate MEASUREMENTS (Male / Female) Normal Values 2D ECHO LV Diastolic Diameter PLAX 4.2 cm 4.2 - 5.9 / 3.9 - 5.3 cm IVS Diastolic Thickness 1.3 cm 0.6 - 1.0 / 0.6 - 0.9 cm IVS Systolic Thickness 1.8 cm LVPW Diastolic Thickness 1.4 cm 0.6 - 1.0 / 0.6 - 0.9 cm LVPW Systolic Thickness 1.9 cm LVOT Diameter 2.1 cm LV Ejection Fraction 2D Teich 57.7 % LV Ejection Fraction MOD 4C 50.0 % LV Ejection Fraction MOD 2C 66.6 % LV Ejection Fraction 2C AL 66.9 % LA Diameter 3.8 cm Aorta at Sinotubular Diameter 2.4 cm IVC Diameter 1.5 cm M-MODE LA Ao Ratio MM 1.5 AV Cusp Separation MM 1.7 cm DOPPLER AV Peak Velocity 195.0 cm/s LVOT Peak Velocity 176.0 cm/s AV Area Cont Eq vti 3.5 cm squared AV Area Cont Eq pk 3.1 cm squared MV Peak Velocity 148.0 cm/s MV Area PHT 3.0 cm squared Mitral E to A Ratio 0.8 TR Peak Velocity 284.0 cm/s TR Peak Gradient 32.3 mmHg TV Peak E Velocity 46.0 cm/s PV Peak Velocity 122.3 cm/s FINDINGS Left Ventricle Normal left ventricular size and systolic function, EF 55% .no regional wall motion abnormalities. Mild left ventricular hypertrophy. Grade I/IV diastolic dysfunction (abnormal relaxation filling pattern), normal to mildly elevated filling pressures. Right Ventricle The right ventricle is normal in size and function. Right Atrium The right atrium is normal in size. Left Atrium Mildly increased left atrial size. Mitral Valve Thickened mitral valve. Moderate mitral annular calcification. Aortic Valve Thickened aortic valve. Aortic valve sclerosis. Peak velocity 1.95 m/s Tricuspid Valve No gross abnormalities noted Pulmonic Valve Pulmonic valve not well visualized. Pericardium Normal pericardium without effusion. Aorta Normal ascending aorta dimension. IVC Inferior vena cava not visualized. CONCLUSIONS Normal left ventricular size and systolic function, EF 55% .no regional wall motion abnormalities. Mild left ventricular hypertrophy. Grade I/IV diastolic dysfunction (abnormal relaxation filling pattern), normal to mildly elevated filling pressures. Aortic valve sclerosis. Peak velocity 1.95 m/s. Mildly increased left atrial size. Thickened mitral valve. Moderate mitral annular calcification. There is no pericardial effusion. There are no intracardiac masses. Compared to the study from 08/12/2017, there may not be a significant change Dr Leatha Graham MD FAC (Electronically Signed) Final Date: 19 June 2024 23:06 S
--- NOTE | 2024-06-19 17:04 | P.HP_ITS ---
Providers/Chief Complaint 2 Admitting Physician: Jose Angel Laboy Primary Care Provider: PABLITO Green Chief Complaint: kidney problems History of Present Illness Pleasant 64-year-old lady with remote history of smoking, COPD, history of nephrolithiasis, DM2, HTN, DDD, other medical problems, came to ER for evaluation due to left back and flank pain, nausea, dry heaving, no vomiting so far. In ER was assessed by CT abdomen pelvis with finding of 6 mm obstructing left UPJ stone with moderate hydronephrosis, so far afebrile, mild leukocytosis 12.17, without tachycardia, her urology team was contacted in [place], with recommendation to follow-up in office tomorrow. In ER she was incidentally noted to be hypoxic with exertion, saturation dropping down to 77%. Not normally on oxygen. He does endorse having had cough productive of some sputum. Otherwise denies any fever, chills, malaise. Denies chest pain pressure. Chest x-ray in ER with mild cardiomegaly. Respiratory viral studies were ordered. NT proBNP ordered. Review of Systems 2 Const: Denies: fever(s), chills, body aches or malaise ENMT: Denies: throat pain Card: Denies: chest pain, edema, pre-syncope or dyspnea on exertion Resp: Reports: productive cough; Denies: hemoptysis GI: Reports: nausea; Denies: abdominal pain, vomiting, diarrhea, constipation, hematochezia or melena : Reports: flank pain; Denies: hematuria Musc: Denies: back pain, joint swelling or joint redness Skin/Breast: Denies: rash or new lesions Neuro: Denies: headache(s) or confusion Medications/Allergies Home Medications Medication Instructions Recorded Confirmed Last Taken Type aspirin 81 mg tablet,delayed 81 mg PO DAILY 09/26/19 06/19/24 06/18/24 History release meclizine 25 mg tablet 25 mg PO BID PRN dizziness 30 days 02/23/20 06/19/24 06/18/24 Rx #60 tabs fastform splint #1 ea 03/09/23 06/19/24 Unknown Rx pen needle, diabetic 33 gauge x #100 ea 07/12/23 06/19/24 Unknown Rx (Comfort EZ Pen [place]) cholecalciferol (vitamin D3) 1,250 1,250 mcg PO .weekly 90 days #12 03/19/24 06/19/24 06/16/24 Rx mcg (50,000 unit) capsule caps duloxetine 60 mg capsule,delayed 60 mg PO DAILY #60 caps 04/21/24 06/19/24 Unknown Rx release (Cymbalta) blood-glucose meter #1 ea 04/24/24 06/19/24 Unknown Rx multivitamin (Daily Multi-Vitamin 1 tab PO DAILY 05/21/24 06/19/24 06/18/24 History tablet) albuterol sulfate 90 mcg/actuation 2 puff inhalation Q6H 06/19/24 06/19/24 06/18/24 History aerosol inhaler dulaglutide 0.75 mg/0.5 mL 0.75 mg SUBCUT Q7D 06/19/24 06/19/24 Unknown History subcutaneous pen injector (Trulicity) fenofibrate 160 mg tablet 160 mg PO DAILY 06/19/24 06/19/24 06/18/24 History fluticasone 250 mcg-salmeterol 50 1 inh inhalation BID 06/19/24 06/19/24 06/18/24 History mcg/dose blistr powdr for inhalation (Wixela Inhub) gabapentin 800 mg tablet 800 mg PO TID 06/19/24 06/19/24 06/19/24 History lisinopril 20 1 tab PO DAILY 06/19/24 06/19/24 06/18/24 History mg-hydrochlorothiazide 25 mg tablet lovastatin 20 mg tablet 20 mg PO DAILY 06/19/24 06/19/24 06/18/24 History Allergies Allergy/AdvReac Type Severity Reaction Status Date / Time ampicillin Allergy unknown Verified 06/19/24 12:00 PFSH Acute 2 PFSH: Medical History Lumbar disc disease with radiculopathy DDD (degenerative disc disease), lumbar Lumbar radiculopathy Enrolled in chronic care management Gout Lumbar strain Epidermoid cyst Otitis media Flank pain with history of urolithiasis Urinary tract obstruction due to kidney stone Lower respiratory infection Right leg pain Arthritis Chronic joint pain Hematuria COPD (chronic obstructive pulmonary disease) UTI (urinary tract infection), bacterial Acromioclavicular joint pain Acute joint pain Family history of aneurysm Headache AC joint pain Vertigo Mixed hyperlipidemia Essential hypertension Diabetes mellitus, type II Vitamin D deficiency Intervertebral disc disorder with radiculopathy of lumbosacral region Cervical disc disorder with myelopathy of mid-cervical region Surgical History History of tubal ligation History of hysterectomy History of skin graft History of nasal surgery removal of excess cartilage from sinus cavity Family History Mother Hypertension Brother Aneurysm Social History Smoking and tobacco/nicotine status: former use of tobacco/nicotine Alcohol intake: never Substance/Drug Use: never Household members: spouse Marital status: Current occupational status: unemployed Vitals/I&O/Wt Last Vital Signs Temp 97.7 F 06/19/24 11:57 Pulse 78 06/19/24 16:30 Resp 20 H 06/19/24 16:30 BP 139/85 06/19/24 16:30 Pulse Ox 91 06/19/24 16:30 O2 Del Method Nasal Cannula 06/19/24 16:30 O2 Flow Rate 3 06/19/24 16:30 Weight last 48 hrs Weight 123.74 kg Physical Exam 2 Const: COMMON NORMALS: patient oriented x3 and alert GENERAL APPEARANCE: c ooperative ORIENTATION/CONSCIOUSNESS: Yes awake HENMT: COMMON NORMALS: oropharynx normal Neck/C-Spine: COMMON NORMALS: no JVD Resp: COMMON NORMALS: normal respiratory effort and clear to auscultation bilaterally AUSCULTATION: diminished lung sounds Cardio: COMMON NORMALS: no JVD, regular rhythm, S1 normal heart sound present, S2 normal heart sound present and No murmurs present (Cardio) RHYTHM: regular rhythm HEART SOUNDS: S1 normal heart sound present and S2 normal heart sound present GI: COMMON NORMALS: Normal to inspection, nondistended, normoactive bowel sounds present, Soft to palpation and non-tender PALPATION: Yes Soft to palpation : OTHER: Flank pain Extremity: COMMON NORMALS: no joint enlargement GENERAL: Yes edema (1+) Neuro: COMMON NORMALS: patient oriented x3 and moves all extremities S ENSORIUM/ORIENTATION: Yes alert Skin: COMMON NORMALS: no rashes or lesions noted GENERAL SKIN EXAM: no rashes or lesions noted Data 06/19/24 12:27 06/19/24 12:27 A&P Assessment and plan (1) Hypoxia: Respiratory failure with unexplained hypoxia, desaturated down to 77% with minimal exertion walking in the room by the bedside, tachypnea as high as 24, new oxygen requirement of 3 L nasal cannula, not normally on oxygen. With productive cough. History of COPD. Possible severe COPD exacerbation. Also with mild cardiomegaly noted on chest x-ray. Peripheral edema 1+. No prior echo. Discussed with her possibility of cardiac dys reviewed vitals, CBC, CMP, UA, chest x-ray, CT abdomen pelvis, ER note, discussed with ER provider. Function/CHF. She denies chest pain or pressure. No hemoptysis. Discussed will assess D-dimer. Assess respiratory viral panel. Oxygen supplementation. Wean down as tolerating. Will treat COPD exacerbation. Assess with TTE. D-dimer requested. Reviewed NT-proBNP, not elevated, but in the setting of obesity may be falsely negative. Hold off diuretic for now given vomiting, poor oral intake. Reviewed coronavirus PCR, influenza PCR, RSV PCR, negative. (2) COPD (chronic obstructive pulmonary disease): COPD with severe exacerbation with productive cough, dyspnea, desaturation exertion down as well as 77%, tachypnea 24. Diminished air entry on exam. Will start Solu-Medrol 30 mg every 8 hours, monitor for risk of hypertension, hyperglycemia, gastritis, encephalopathy with IV steroid. Breathing treatments with DuoNeb. Oxygen support, wean down as tolerating. Additional assessment as above. (3) Left nephrolithiasis: Found to have left UPJ obstructing stone with moderate hydronephrosis which was discussed with urology who will be seeing her in clinic tomorrow. In the meantime continue Flomax, continue pain control, IV Dilaudid for severe breakthrough pain, hydrocodone, Zofran as needed for nausea. Monitor for hematuria. Monitor for development of UTI, reassess renal function. CBC. Monitor vitals. Hold off IV hydration pending assessment for possible acute decompensated CHF. (4) Urinary tract obstruction due to kidney stone: As above. Plan DM2, monitor POC glucose. Consistent carbohydrate liquid diet for now with nausea, dry heaving. Sliding scale insulin. HTN, monitor blood pressure. Continue lisinopril. Hold off HCTZ for now given vomiting. DDD Attestations 2 Medical Necessity Statement*: Place in observation for additional assessment management of acute hypoxic respiratory failure with COPD exacerbation, assessment for additional contributing conditions in a lady with acute left UPJ stone, moderate hydronephrosis. Diagnoses Hypoxia R09.02 COPD (chronic obstructive pulmonary disease) J44.9 Left nephrolithiasis N20.0 Urinary tract obstruction due to kidney stone N20.0; N13.8
[2024-06-19] MEDS: methylPREDNISolone sod succ 40 mg/mL INJ 30 MG IVP (17:56)
--- NOTE | 2024-06-19 18:08 | PC.NURSE ---
pt stated, i am going to take my own meds . educ pt that she should not take any medications on her own that all medications needed to be given to her by the nurses. pt verbalized understanding, she is AAOx4
[2024-06-19 18:22] LABS: D Dimer 0.64 ug/mLFEU (0-0.59)
--- NOTE | 2024-06-19 18:46 | CTR_ITS ---
PROCEDURE INFORMATION: Exam: CTA Chest With Contrast Exam date and time: 06/19/2024 10:04 PM Age: 64 years old Clinical indication: Shortness of breath; Additional info: Assess for pe TECHNIQUE: Imaging protocol: Computed tomographic angiography of the chest with contrast. Exam focused on the arteries. 3D rendering (Not supervised by radiologist): MIP and/or 3D reconstructed images were created by the technologist. Radiation optimization: All CT scans at this facility use at least one of these dose optimization techniques: automated exposure control; mA and/or kV adjustment per patient size (includes targeted exams where dose is matched to clinical indication); or iterative reconstruction. Contrast material: OMNI 350; Contrast volume: 100 ml; Contrast route: INTRAVENOUS (IV); COMPARISON: CR XR chest 1V portable [id number] 06/19/2024 2:56 PM RADIATION DOSE METRICS: Total DLP (mGy-cm): 506.12 FINDINGS: Pulmonary arteries: Normal. No pulmonary emboli. Aorta: Unremarkable. No aortic aneurysm. No aortic dissection. Lungs: Atelectatic changes in the dependent portions of both lower lobes. Pleural spaces: Unremarkable. No pneumothorax. No pleural effusion. Heart: Unremarkable. No cardiomegaly. No pericardial effusion. Lymph nodes: Unremarkable. No enlarged lymph nodes. Liver: There is a diffuse decrease in hepatic parenchymal density, consistent with fatty infiltration. Gallbladder and biliary ducts: There has been a cholecystectomy. Bones/joints: Mild curvature of the thoracic spine convex to the right. There are diffuse enthesopathic changes consistent with benign diffuse idiopathic skeletal hyperostosis (DISH). Soft tissues: Unremarkable. CT/CT angio chest PE protcl [id number] IMPRESSION: 1. No pulmonary embolism. 2. No acute infiltrates.
[2024-06-19] MEDS: HYDROmorphone 1 mg/mL INJ 1 mL 0.4 MG IVP (21:08)
[2024-06-19] MEDS: enoxaparin 40 mg/0.4 mL Syringe SUBCUT (21:09)
[2024-06-19] MEDS: gabapentin 400 mg Capsule 800 MG PO (21:10)
[2024-06-19] MEDS: ipratropium-albuterol 3 mL Neb INHALATION (21:25)
[2024-06-19 21:31] LABS: Glucose Point of Care 197 mg/dL (70-110)
[2024-06-19] MEDS: insulin lispro 100 unit/1 mL SUBCUT (21:44)
[2024-06-20] VITALS (7 sets, daily range): BP systolic 123–144; BP diastolic 56–66; PULSE 72–94; RESP 16–20; TEMP 36.5–36.8; O2SAT 85–95
[2024-06-20] MEDS: methylPREDNISolone sod succ 40 mg/mL INJ 30 MG IVP ×2 (01:29→09:39)
[2024-06-20] MEDS: ipratropium-albuterol 3 mL Neb INHALATION ×2 (03:16→07:38)
[2024-06-20 05:52] LABS: Basophils % 0.2 %; Hematocrit 46.9 % (36-47); Lymphocytes # 0.7 10^3/uL (0.8-4.8); Lymphocytes % 7.7 %; Mean Corpuscular HGB Conc 31.8 g/dL (30-55); Mean Corpuscular Hemoglobin 30.5 pg (27-33); Mean Corpuscular Volume 96.1 fl (85-98); Mean Platelet Volume 11.3 fL (7.4-10.4); Monocytes # 0.2 10^3/uL (0.2-0.9); Monocytes % 1.8 %; Neutrophils # 8.42 10^3/uL (1.8-7.7); Neutrophils % 89.7 %; Nucleated Red Blood Cells % 0 %; Platelet Count 205 10^3/cmm (157-399); Red Blood Count 4.88 10^6/uL (3.85-5.65); Red Cell Distribution Width 12.7 % (12.1-15.1); White Blood Count 9.39 10^3/uL (3.29-11.43)
[2024-06-20 06:10] LABS: Alanine Aminotransferase 18 U/L (0-33); Albumin Level 4.1 g/dL (3.5-5.2); Alkaline Phosphatase 61 U/L (35-105); Anion Gap 16.3 (5-19); Aspartate Amino Transferase 21 U/L (0-32); Blood Urea Nitrogen 23 mg/dL (8-23); Calcium 9.1 mg/dL (8.5-10.5); Carbon Dioxide 28 mmol/L (22-29); Chloride 100 mmol/L (98-107); Creatinine Clr Calc Pharmacy 64.0366; Globulin 2.5 g/dL (1.3-4.6); Glomerular Filtration Rate 49.8 mL/min (90-130); Glucose 179 mg/dL (65-115); Osmolality Calculated 298 mOsm/kg (285-295); Potassium 4.3 mmol/L (3.5-5.1); Sodium 140 mmol/L (136-145); Total Bilirubin 0.2 mg/dL (0.15-1.2); Total Protein 6.6 g/dL (6.6-8.7)
[2024-06-20 06:16] LABS: Glucose Point of Care 168 mg/dL (70-110)
[2024-06-20] MEDS: insulin lispro 100 unit/1 mL SUBCUT ×2 (09:35→13:10)
[2024-06-20] MEDS: gabapentin 400 mg Capsule 800 MG PO (09:37)
[2024-06-20] MEDS: duloxetine 60 mg Capsule PO (09:37)
[2024-06-20] MEDS: aspirin 81 mg EC Tablet PO (09:37)
[2024-06-20] MEDS: tamsulosin 0.4 mg Capsule PO (09:37)
[2024-06-20 10:49] LABS: Glucose Point of Care 207 mg/dL (70-110)
--- NOTE | 2024-06-20 11:05 | PM.DCS ---
Discharge Providers Date of Admission: 06/19/24 16:29 Date of Discharge: June 20, 2024 Attending Provider at Admission: Jose Angel Laboy Attending Provider at Discharge: Jose Angel Laboy Primary Care Provider: PABLITO Green Diagnoses at Discharge Discharge Diagnosis (1) Hypoxia: Status: Acute (2) COPD (chronic obstructive pulmonary disease): Status: Acute Qualifiers: COPD type: unspecified COPD Qualified Code(s): J44.9 - Chronic obstructive pulmonary disease, unspecified (3) Left nephrolithiasis: Status: Acute (4) Urinary tract obstruction due to kidney stone: Status: Acute Reason for Visit Reason for Visit: kidney problems Brief History: Pleasant 64-year-old lady with remote history of smoking, COPD, history of nephrolithiasis, DM2, HTN, DDD, other medical problems, came to ER for evaluation due to left back and flank pain, nausea, dry heaving, no vomiting so far. In ER was assessed by CT abdomen pelvis with finding of 6 mm obstructing left UPJ stone with moderate hydronephrosis, so far afebrile, mild leukocytosis 12.17, without tachycardia, her urology team was contacted in [place], with recommendation to follow-up in office tomorrow. In ER she was incidentally noted to be hypoxic with exertion, saturation dropping down to 77%. Not normally on oxygen. He does endorse having had cough productive of some sputum. Otherwise denies any fever, chills, malaise. Denies chest pain pressure. Chest x-ray in ER with mild cardiomegaly. Respiratory viral studies were ordered. NT proBNP ordered. Hospital Course Hospital Course She did well overnight, without any worsening oxygenation, and was able to have a delayed. Did require oxygen supplementation. With cough, diminished air entry, treated for COPD exacerbation. D-dimer with mild abnormality, 0.64, assessed with CTA, no PE found. No infiltrate to indicate pneumonia no CHF changes. Echocardiogram obtained, with normal ejection fraction, grade 1 diastolic dysfunction, additional incidental findings. She otherwise remained afebrile, without leukocytosis. Home oxygen evaluation is obtained at discharge, qualifying for oxygen, arrangements made for her to be set up with oxygen due to COPD. Discussed monitoring oxygenation and targets. She is going to directly follow-up with urology for additional assessment of obstructing 6 mm stone with moderate hydronephrosis. In addition to treatment for COPD exacerbation with a course of prednisone, Levaquin, she is also prescribed medications due to nephrolithiasis including Flomax, Zofran as needed, hydrocodone as needed for pain. She knows to seek medical attention in case of any worsening or new concerning symptoms. Physical Exam Narrative: Accompanied by her daughter. Const: COMMON NORMALS: patient oriented x3 and alert GENERAL APPEARANCE: cooperative ORIENTATION/CONSCIOUSNESS: Yes awake HENMT: COMMON NORMALS: oropharynx normal Neck/C-Spine: COMMON NORMALS: no JVD Resp: COMMON NORMALS: normal respiratory effort and clear to auscultation bilaterally AUSCULTATION: clear to auscultation bilaterally Cardio: COMMON NORMALS: no JVD, regular rhythm, S1 normal heart sound present, S2 normal heart sound present and No murmurs present (Cardio) RHYTHM: regular rhythm HEART SOUNDS: S1 normal heart sound present and S2 normal heart sound present GI: COMMON NORMALS: Normal to inspection, nondistended, normoactive bowel sounds present, Soft to palpation and non-tender PALPATION: Yes Soft to palpation Extremity: COMMON NORMALS: no joint enlargement and no pedal edema Neuro: COMMON NORMALS: patient oriented x3 and moves all extremities SENSORIUM/ORIENTATION: Yes alert Skin: COMMON NORMALS: no rashes or lesions noted GENERAL SKIN EXAM: no rashes or lesions noted Discharge Data Studies Completed and Pending Completed Studies During Hospitalization Category Date Time Status CT abdomen renal stone [CT kidney stone [id number]] Stat Cat Scan 06/19/24 12:04 Completed CTA chest [CT angio chest PE protcl [id number]] Routine Cat Scan 06/19/24 18:46 Completed XR chest 1V portable [id number] Stat Exams 06/19/24 14:50 Completed CV. echo complete* [id number] Routine Ultrasound 06/19/24 16:57 Completed Pending at discharge Category Date Time Status Complete Blood Count w/Auto AM LABS Lab 06/21/24 04:00 Ordered Complete Blood Count w/Auto AM LABS Lab 06/22/24 04:00 Ordered Comprehensive Metabolic Panel AM LABS Lab 06/21/24 04:00 Ordered Comprehensive Metabolic Panel AM LABS Lab 06/22/24 04:00 Ordered Radiology Impressions Abdomen/Pelvis CT 06/19/24 12:04 IMPRESSION: 1. Obstructing 6 mm calculus LEFT UPJ with moderate LEFT hydronephrosis. Inflammatory stranding and edema about the LEFT kidney. 2. No obstructing RIGHT renal or ureteral calculi. 3. Prior hysterectomy and cholecystectomy. 4. Hepatomegaly with diffuse fatty infiltration of the liver. Notified Dario Moon DO at 06/19/2024 1:12 PM. Chest X-Ray 06/19/24 14:50 Impression: Mild cardiomegaly. Chest CTA 06/19/24 18:46 IMPRESSION: 1. No pulmonary embolism. 2. No acute infiltrates. Laboratory Results WBC 9.39 10^3/uL (3.29-11.43) 06/20/24 05:25 RBC 4.88 10^6/uL (3.85-5.65) 06/20/24 05:25 Hgb 14.90 g/dL (11.27-16.99) 06/20/24 05:25 Hct 46.9 % (36-47) 06/20/24 05:25 MCV 96.1 fl (85-98) 06/20/24 05:25 MCH 30.5 pg (27-33) 06/20/24 05:25 MCHC 31.8 g/dL (30-55) 06/20/24 05:25 RDW 12.7 % (12.1-15.1) 06/20/24 05:25 Plt Count 205 10^3/cmm (157-399) 06/20/24 05:25 MPV 11.3 fL (7.4-10.4) H 06/20/24 05:25 Neut % (Auto) 89.7 % 06/20/24 05:25 Lymph % (Auto) 7.7 % 06/20/24 05:25 [place] % (Auto) 1.8 % 06/20/24 05:25 Eos % (Auto) 0.0 % 06/20/24 05:25 Baso % (Auto) 0.2 % 06/20/24 05:25 Neut # (Auto) 8.42 10^3/uL (1.8-7.7) H 06/20/24 05:25 Lymph # (Auto) 0.7 10^3/uL (0.8-4.8) L 06/20/24 05:25 [place] # (Auto) 0.2 10^3/uL (0.2-0.9) 06/20/24 05:25 Eos # (Auto) 0.0 10^3/uL (0.0-0.8) 06/20/24 05:25 Baso # (Auto) 0.0 10^3/uL (0.0-0.1) 06/20/24 05:25 Nucleated RBC % (auto) 0 % 06/20/24 05:25 Nucleated RBCs # 0.0 /100WBC 06/20/24 05:25 D-Dimer 0.64 ug/mLFEU (0-0.59) H 06/19/24 12:27 Sodium 140 mmol/L (136-145) 06/20/24 05:25 Potassium 4.3 mmol/L (3.5-5.1) 06/20/24 05:25 Chloride 100 mmol/L (98-107) 06/20/24 05:25 Carbon Dioxide 28 mmol/L (22-29) 06/20/24 05:25 Anion Gap 16.3 (5-19) 06/20/24 05:25 BUN 23 mg/dL (8-23) 06/20/24 05:25 Creatinine 1.1 mg/dL (0.5-0.9) H 06/20/24 05:25 GFR Calculation 49.8 mL/min (90-130) L 06/20/24 05:25 Glucose 179 mg/dL (65-115) H 06/20/24 05:25 POC Glucose 207 mg/dL (70-110) H 06/20/24 10:43 Calculated Osmolality 298 mOsm/kg (285-295) H 06/20/24 05:25 Calcium 9.1 mg/dL (8.5-10.5) 06/20/24 05:25 Total Bilirubin 0.2 mg/dL (0.15-1.2) 06/20/24 05:25 AST 21 U/L (0-32) 06/20/24 05:25 ALT 18 U/L (0-33) 06/20/24 05:25 Alkaline Phosphatase 61 U/L (35-105) 06/20/24 05:25 NT-Pro-B Natriuret Pep 52 pg/mL (0-125) 06/19/24 12:27 Total Protein 6.6 g/dL (6.6-8.7) 06/20/24 05:25 Albumin 4.1 g/dL (3.5-5.2) 06/20/24 05:25 Globulin 2.5 g/dL (1.3-4.6) 06/20/24 05:25 Urine Color Yellow (Yellow) 06/19/24 12:15 Urine Appearance Clear (CLEAR) 06/19/24 12:15 Urine pH 7.5 (5-7) 06/19/24 12:15 Ur Specific [place] 1.020 (1.005-1.030) 06/19/24 12:15 Urine Protein Trace (Negative) A 06/19/24 12:15 Urine Glucose (UA) Negative (Normal) 06/19/24 12:15 Urine Ketones Negative (Negative) 06/19/24 12:15 Urine Blood Negative (Negative) 06/19/24 12:15 Urine Nitrate Negative (Negative) 06/19/24 12:15 Urine Bilirubin Negative (Negative) 06/19/24 12:15 Urine Urobilinogen 1.0 mg/dL (Negative) 06/19/24 12:15 Ur Leukocyte Esterase Negative (Negative) 06/19/24 12:15 Urine RBC 3-5 /hpf (0-2) 06/19/24 12:15 Urine WBC 0-5 /hpf (0-5) 06/19/24 12:15 Ur Squamous Epith Cells 6-10 /hpf (0-5) 06/19/24 12:15 Amorphous Sediment Not Reportable 06/19/24 12:15 Urine Bacteria Trace /hpf (NONE) 06/19/24 12:15 Hyaline Casts 4.11 /lpf 06/19/24 12:15 Coronavirus (PCR) Negative (Negative) 06/19/24 14:56 Influenza A (PCR) Negative (Negative) 06/19/24 14:56 Influenza Type B (PCR) Negative (Negative) 06/19/24 14:56 RSV (PCR) Negative (Negative) 06/19/24 14:56 Vitals Last Vital Signs Temp 97.9 F 06/20/24 07:26 Pulse 82 06/20/24 07:38 Resp 18 06/20/24 07:38 BP 144/56 06/20/24 07:26 Pulse Ox 89 L 06/20/24 10:37 O2 Del Method Nasal Cannula 06/20/24 07:38 O2 Flow Rate 3 12/20/24 10:37 Discharge Plan Discharge Patient Disposition: Home Condition: Stable Prescriptions: New tamsulosin 0.4 mg Capsule 0.4 mg PO BID Qty: 30 0RF prednisone 20 mg tablet 20 mg PO DAILY 3 Days Qty: 3 0RF levofloxacin 750 mg tablet 750 mg PO DAILY 5 Days Qty: 5 0RF ondansetron HCl 4 mg tablet 4 mg PO Q8H 3 Days Qty: 9 0RF hydrocodone-acetaminophen 5-325 mg tablet 1 tab PO BID PRN (Reason: pain) Qty: 7 0RF Continued aspirin 81 mg tablet,delayed release (DR/EC) 81 mg PO DAILY (DME) fastform splint See Rx Instructions .Route .MEDSUPPLY Qty: 1 0RF Rx Instructions: As directed (DME) blood-glucose meter Kit See Rx Instructions .Route Qty: 1 11RF Rx Instructions: As directed Daily checks Please provided glucometer, lancets and strips (DME) pen needle, diabetic [Comfort EZ Pen [place]] 33 gauge x 5/32 needle See Rx Instructions .Route Qty: 100 0RF Rx Instructions: As directed meclizine 25 mg tablet 25 mg PO BID PRN (Reason: dizziness) 30 Days Qty: 60 0RF cholecalciferol (vitamin D3) 1,250 mcg (50,000 unit) capsule 1,250 mcg PO .weekly 90 Days Qty: 12 2RF duloxetine [Cymbalta] 60 mg capsule,delayed release(DR/EC) 60 mg PO DAILY Qty: 60 2RF multivitamin [Daily Multi-Vitamin] Tablet 1 tab PO DAILY gabapentin 800 mg tablet 800 mg PO TID lisinopril-hydrochlorothiazide 20-25 mg tablet 1 tab PO DAILY lovastatin 20 mg tablet 20 mg PO DAILY albuterol sulfate 90 mcg/actuation HFA aerosol inhaler 2 puff inhalation Q6H fenofibrate 160 mg tablet 160 mg PO DAILY Trulicity 0.75 mg/0.5 mL pen injector 0.75 mg SUBCUT Q7D No Action fluticasone propion-salmeterol [Wixela Inhub] 250-50 mcg/dose blister with device 1 inh INHALATION BID Qty: 60 2RF budesonide-formoterol [Symbicort] 160-4.5 mcg/actuation HFA aerosol inhaler 1 inh inhalation BID Qty: 10.2 1RF Discharge Orders: Discharge Order (Routine); Ordered 06/20/24 Ordered By: Jose Angel Laboy Other Ambulatory Orders: DME: Oxygen (Order) Location: None Selected Ordered By: Jose Angel Laboy Referrals: [facility] [Provider Group] - 1-3 days [facility] [Outside] MIKEY Palumbo FNP [Primary Care Provider] - 4-7 days Discharge Activity: Oxygen as instructed Patient Instructions: Hydrocodone/Acetaminophen (By mouth), Prednisone (By mouth), Levofloxacin (By mouth) (Levaquin, Levaquin Leva-vivek), Tamsulosin (By mouth), Kidney Stones (GEN), COPD (Chronic Obstructive Pulmonary Disease) (GEN), Hydronephrosis (GEN), COPD Stoplight, Opioid Safety, Pain Management Activity Restrictions/Additional Instructions: Please follow-up with urology for assessment of impacted 6 mm stone with moderate hydronephrosis. Please complete treatment for COPD with her oxygen if found needed on home oxygen evaluation. Target oxygen saturation above 88-92%. Follow-up with your primary doctor for reassessment after COPD exacerbation and after kidney stone. Discharge Attestations Time Spent in Discharge Care*: greater than 30 min Quality Metrics Clinical Quality Measures [ No reported AMI, CVA or VTE this stay] Coding Level of Care Code 33673 Total time (in minutes) for Discharge: 45 Diagnoses Hypoxia R09.02 Chronic obstructive pulmonary disease, unspecified COPD type J44.9 COPD type: unspecified COPD Left nephrolithiasis N20.0 Urinary tract obstruction due to kidney stone N20.0; N13.8
== END 2024-06-20 14:45 | disposition home or self-care (01) ==
LOC: ER 15:32 → MEDSURG 16:29
PROVIDERS: Emergency Medicine; Admitting Provider Internal Medicine; Emergency Provider Physician Assistant; PCP Nurse Practitioner Family; Visit Provider Internal Medicine
DX: R09.02 Hypoxemia (principal); J44.9 Chronic obstructive pulmonary disease, unspecified; N20.0 Calculus of kidney; N13.8 Other obstructive and reflux uropathy; Z87.891 Personal history of nicotine dependence; E11.9 Type 2 diabetes mellitus without complications; I10 Essential (primary) hypertension; M19.90 Unspecified osteoarthritis, unspecified site; Z79.82 Long term (current) use of aspirin; E78.2 Mixed hyperlipidemia
CPT/HCPCS: 0241U; 36415; 36416; 71045; 71275; 74176; 80053; 81001; 82962; 83880; 85025; 85378; 93306; 94640; 94760; 96372; 96374; 96375; 96376; 99285; G0378; J1171; J1650; J1815; J2405; J2919; Q9967

== ENCOUNTER 2024-10-26 20:23 | Emergency (ER) | payer MEDICARE, OTHER, SELFPAY ==
[2024-10-26] VITALS (8 sets, daily range): BP systolic 155–189; BP diastolic 71–93; PULSE 68–80; RESP 18; TEMP 36.4; O2SAT 90–92; BMI 45.8
--- NOTE | 2024-10-26 20:36 | CTR_ITS ---
PROCEDURE INFORMATION: Exam: CT Abdomen And Pelvis Without Contrast Exam date and time: 10/26/2024 8:49 PM Age: 64 years old Clinical indication: Abdominal pain; Prior surgery; Surgery date: 6+ months; Surgery type: Gb. Hysterectomy; C/O left flank pain. TECHNIQUE: Imaging protocol: Computed tomography of the abdomen and pelvis without contrast. Radiation optimization: All CT scans at this facility use at least one of these dose optimization techniques: automated exposure control; mA and/or kV adjustment per patient size (includes targeted exams where dose is matched to clinical indication); or iterative reconstruction. COMPARISON: CT kidney stone [id number] 06/19/2024 12:34 PM RADIATION DOSE METRICS: Total DLP (mGy-cm): 1158.92 FINDINGS: Lungs: Lingular atelectasis. Liver: Hepatic steatosis and hepatomegaly. Gallbladder and biliary ducts: Cholecystectomy. Pancreas: Normal. No ductal dilation. Spleen: Normal. No splenomegaly. Adrenal glands: Normal. No mass. Kidneys and ureters: Left ureteropelvic junction 13 mm calculus with moderate to severe hydronephrosis with perinephric edema, please correlate for pyelonephritis. Right kidney nonobstructing calyceal stones. Stomach and bowel: Diverticulosis without diverticulitis. Appendix: No evidence of appendicitis. Intraperitoneal space: Unremarkable. No free air. No significant fluid collection. Vasculature: Unremarkable. No abdominal aortic aneurysm. Lymph nodes: Unremarkable. No enlarged lymph nodes. Urinary bladder: Unremarkable as visualized. Reproductive: Unremarkable as visualized. Bones/joints: Unremarkable. No acute fracture. Soft tissues: Unremarkable. CT/CT kidney stone [id number] IMPRESSION: 1. Left ureteropelvic junction 13 mm calculus with moderate to severe hydronephrosis with perinephric edema, please correlate for pyelonephritis. 2. Diverticulosis without diverticulitis. 3. Lingular atelectasis. 4. Hepatic steatosis and hepatomegaly. 5. Cholecystectomy. 6. Right kidney nonobstructing calyceal stones.
[2024-10-26 20:48] LABS: Basophils # 0.1 10^3/uL (0.0-0.1); Basophils % 0.5 %; Eosinophils # 0.3 10^3/uL (0.0-0.8); Eosinophils % 2.1 %; Hematocrit 46.1 % (36-47); Lymphocytes # 1.7 10^3/uL (0.8-4.8); Lymphocytes % 12.6 %; Mean Corpuscular HGB Conc 32.3 g/dL (30-55); Mean Corpuscular Hemoglobin 30.2 pg (27-33); Mean Corpuscular Volume 93.3 fl (85-98); Mean Platelet Volume 11.1 fL (7.4-10.4); Monocytes % 7.7 %; Neutrophils # 10.11 10^3/uL (1.8-7.7); Neutrophils % 76.7 %; Nucleated Red Blood Cells % 0 %; Platelet Count 224 10^3/cmm (157-399); Red Blood Count 4.94 10^6/uL (3.85-5.65); Red Cell Distribution Width 13.2 % (12.1-15.1); White Blood Count 13.17 10^3/uL (3.29-11.43)
--- NOTE | 2024-10-26 20:49 | W.ED.FEMALGU ---
HPI - Female Genitourinary General: Chief complaint: Urogenital-Female Stated complaint: Pain Kidney's Time Seen by Provider: 10/26/24 20:33 History of Present Illness: 64-year-old female, diagnosed with a kidney stone, 6 mm in june. She presents with left flank pain. It started this morning. Radiates to groin. No fever. She evidently was supposed to have a procedure on the stone back then, but got COVID, and was unable to have it done. She has been vomiting. She says that she had been relatively pain-free until this morning. Related Data Home Medications ?Medication ?Instructions ?Recorded ?Confirmed aspirin 81 mg tablet,delayed 81 mg PO DAILY 09/26/19 07/21/24 release multivitamin (Daily Multi-Vitamin 1 tab PO DAILY 05/21/24 07/21/24 tablet) albuterol sulfate 90 mcg/actuation 2 puff inhalation Q6H 06/19/24 07/21/24 aerosol inhaler Previous Rx's ?Medication ?Instructions ?Recorded meclizine 25 mg tablet 25 mg PO BID PRN dizziness 30 days 02/23/20 #60 tabs fastform splint #1 ea 03/09/23 pen needle, diabetic 33 gauge x #100 ea 07/12/23 (Comfort EZ Pen [place]) cholecalciferol (vitamin D3) 1,250 1,250 mcg PO .weekly 90 days #12 03/19/24 mcg (50,000 unit) capsule caps duloxetine 60 mg capsule,delayed 60 mg PO DAILY #60 caps 04/21/24 release (Cymbalta) blood-glucose meter #1 ea 04/24/24 fluticasone 250 mcg-salmeterol 50 1 inh inhalation BID #60 ea 06/20/24 mcg/dose blistr powdr for inhalation (Wixela Inhub) gabapentin 800 mg tablet 800 mg PO TID 30 days #90 tabs 06/30/24 ipratropium 0.5 mg-albuterol 3 mg 3 ml inhalation Q6H PRN wheezing 06/30/24 (2.5 mg base)/3 mL nebulization 30 days #90 mL soln nebulizers #1 ea 06/30/24 tamsulosin 0.4 mg capsule 0.4 mg PO BID #30 caps 06/30/24 tramadol 50 mg tablet 50 mg PO BID PRN pain 30 days #60 06/30/24 tabs dulaglutide 0.75 mg/0.5 mL See Rx Instructions .Route 07/22/24 subcutaneous pen injector .COMPLEX #2 mL (Trulicity) budesonide-formoterol HFA 160 See Rx Instructions .Route 08/29/24 mcg-4.5 mcg/actuation aerosol .COMPLEX #10.2 ea inhaler lovastatin 20 mg tablet See Rx Instructions .Route 09/22/24 .COMPLEX #90 tabs fenofibrate 160 mg tablet 160 mg PO DAILY #30 tabs 10/23/24 lisinopril 20 1 tab PO DAILY #30 tabs 10/23/24 mg-hydrochlorothiazide 25 mg tablet Allergies Allergy/AdvReac Type Severity Reaction Status Date / Time ampicillin Allergy unknown Verified 10/26/24 20:25 PFS ED PFSH: Medical History Back strain Fall at home Left shoulder strain Lumbar disc disease with radiculopathy DDD (degenerative disc disease), lumbar Lumbar radiculopathy Enrolled in chronic care management Gout Lumbar strain Epidermoid cyst Otitis media Flank pain with history of urolithiasis Urinary tract obstruction due to kidney stone Lower respiratory infection Right leg pain Arthritis Chronic joint pain Hematuria COPD (chronic obstructive pulmonary disease) UTI (urinary tract infection), bacterial Acromioclavicular joint pain Acute joint pain Family history of aneurysm Headache AC joint pain Vertigo Mixed hyperlipidemia Essential hypertension Diabetes mellitus, type II Vitamin D deficiency Intervertebral disc disorder with radiculopathy of lumbosacral region Cervical disc disorder with myelopathy of mid-cervical region Surgical History History of tubal ligation History of hysterectomy History of skin graft History of nasal surgery removal of excess cartilage from sinus cavity Family History Mother Hypertension Brother Aneurysm Social History Smoking and tobacco/nicotine status: never used tobacco/nicotine Alcohol intake: never Substance/Drug Use: never Household members: spouse Marital status: Current occupational status: unemployed Physical Exam Const: COMMON NORMALS: no acute distress GENERAL APPEARANCE: cooperative; not ill appearing and not frail appearing HENMT: COMMON NORMALS: normocephalic, atraumatic and Normal external nose present HEAD & SCALP: normocephalic and atraumatic FACE & SINUS: normal facial exam and face symmetric NOSE: Normal external nose present Eye: COMMON NORMALS: Equal, round and reactive pupils present and EOMs intact bilaterally PUPIL: Yes Equal, round and reactive pupils present Neck/C-Spine: GENERAL: Yes trachea midline Chest: CHEST: Yes Symmetrical chest wall rise Resp: COMMON NORMALS: normal respiratory effort, No retractions, No use of accessory muscles and clear to auscultation bilaterally AUSCULTATION: clear to auscultation bilaterally Cardio: COMMON NORMALS: regular rate and regular rhythm RATE: regular rate RHYTHM: regular rhythm GI: COMMON NORMALS: Normal to inspection, nondistended, normoactive bowel sounds present Extremity: COMMON NORMALS: no pedal edema Neuro: NOEMY COMA SCALE: document GCS findings Noemy coma scale eye opening: Spontaneous [place] coma scale verbal response: Orientated Noemy coma scale motor response: [place]bey commands [place] coma scale total score: 15 SENSORY EXAM: Yes extremities (intact) Psych: COMMON NORMALS: speech normal SPEECH: Yes normal speech Skin: COMMON NORMALS: no rashes or lesions noted GENERAL SKIN EXAM: no rashes or lesions noted Course Vital Signs: Vital signs: Vital Signs Temperature 97.5 F L 10/26/24 20:24 Pulse Rate 80 10/27/24 02:34 Respiratory Rate 18 10/26/24 20:52 Blood Pressure 154/79 10/27/24 02:34 Pulse Oximetry 92 10/27/24 02:34 Oxygen Delivery Me thod Nasal Cannula 10/27/24 00:00 MDM - Female Medical Decision Making Large obstructing stone just outside the renal pelvis on the left by CT. White blood cell count is 13. She is afebrile. Urinalysis reveals no infection. She is required significant amount of morphine here, so much so that we have had to put her on oxygen. With a 13 mm calculus, she will not be able to pass this on her own. I spoken with urology at [facility] in [facility], as we have no urologist here at this facility. They are willing to consult if the patient can be admitted to medicine. Medicine is excepted to the floor there. We have achieved a bed for her. She will go by ambulance. She stable at this point. Lab Data 10/26/24 20:44 10/26/24 20:44 Radiology Impressions Abdomen/Pelvis CT 10/26/24 20:36 IMPRESSION: 1. Left ureteropelvic junction 13 mm calculus with moderate to severe hydronephrosis with perinephric edema, please correlate for pyelonephritis. 2. Diverticulosis without diverticulitis. 3. Lingular atelectasis. 4. Hepatic steatosis and hepatomegaly. 5. Cholecystectomy. 6. Right kidney nonobstructing calyceal stones. Laboratory Results WBC 13.17 10^3/uL (3.29-11.43) H 10/26/24 20:44 RBC 4.94 10^6/uL (3.85-5.65) 10/26/24 20:44 Hgb 14.90 g/dL (11.27-16.99) 10/26/24 20:44 Hct 46.1 % (36-47) 10/26/24 20:44 MCV 93.3 fl (85-98) 10/26/24 20:44 MCH 30.2 pg (27-33) 10/26/24 20:44 MCHC 32.3 g/dL (30-55) 10/26/24 20:44 RDW 13.2 % (12.1-15.1) 10/26/24 20:44 Plt Count 224 10^3/cmm (157-399) 10/26/24 20:44 MPV 11.1 fL (7.4-10.4) H 10/26/24 20:44 Neut % (Auto) 76.7 % 10/26/24 20:44 Lymph % (Auto) 12.6 % 10/26/24 20:44 Falls % (Auto) 7.7 % 10/26/24 20:44 Eos % (Auto) 2.1 % 10/26/24 20:44 Baso % (Auto) 0.5 % 10/26/24 20:44 Neut # (Auto) 10.11 10^3/uL (1.8-7.7) H 10/26/24 20:44 Lymph # (Auto) 1.7 10^3/uL (0.8-4.8) 10/26/24 20:44 Falls # (Auto) 1.0 10^3/uL (0.2-0.9) H 10/26/24 20:44 Eos # (Auto) 0.3 10^3/uL (0.0-0.8) 10/26/24 20:44 Baso # (Auto) 0.1 10^3/uL (0.0-0.1) 10/26/24 20:44 Nucleated RBC % (auto) 0 % 10/26/24 20:44 Nucleated RBCs # 0.0 /100WBC 10/26/24 20:44 Sodium 143 mmol/L (136-145) 10/26/24 20:44 Potassium 3.8 mmol/L (3.5-5.1) 10/26/24 20:44 Chloride 103 mmol/L (98-107) 10/26/24 20:44 Carbon Dioxide 28 mmol/L (22-29) 10/26/24 20:44 Anion Gap 15.8 (5-19) 10/26/24 20:44 BUN 21 mg/dL (8-23) 10/26/24 20:44 Creatinine 0.8 mg/dL (0.5-0.9) 10/26/24 20:44 GFR Calculation 72.0 mL/min (90-130) L 10/26/24 20:44 Glucose 140 mg/dL (65-115) H 10/26/24 20:44 Calculated Osmolality 301 mOsm/kg (285-295) H 10/26/24 20:44 Calcium 9.8 mg/dL (8.5-10.5) 10/26/24 20:44 Total Bilirubin 0.4 mg/dL (0.15-1.2) 10/26/24 20:44 AST 22 U/L (0-32) 10/26/24 20:44 ALT 22 U/L (0-33) 10/26/24 20:44 Alkaline Phosphatase 76 U/L (35-105) 10/26/24 20:44 C-Reactive Protein 7.3 mg/L (0.0-4.9) H 10/26/24 20:44 Total Protein 7.0 g/dL (6.6-8.7) 10/26/24 20:44 Albumin 4.4 g/dL (3.5-5.2) 10/26/24 20:44 Globulin 2.6 g/dL (1.3-4.6) 10/26/24 20:44 Lipase 48 U/L (13-60) 10/26/24 20:44 Urine Color Yellow (Yellow) 10/26/24 20:49 Urine Appearance Turbid (CLEAR) A 10/26/24 20:49 Urine pH 8.0 (5-7) A 10/26/24 20:49 Ur Specific [place] 1.017 (1.005-1.030) 10/26/24 20:49 Urine Protein Negative (Negative) 10/26/24 20:49 Urine Glucose (UA) Negative (Normal) 10/26/24 20:49 Urine Ketones Negative (Negative) 10/26/24 20: Urine Blood Negative (Negative) 10/26/24 20:49 Urine Nitrate Negative (Negative) 10/26/24 20:49 Urine Bilirubin Negative (Negative) 10/26/24 20:49 Urine Urobilinogen 1.0 mg/dL (Negative) 10/26/24 20:49 Ur Leukocyte Esterase Trace (Negative) A 10/26/24 20:49 Urine RBC 0-2 /hpf (0-2) 10/26/24 20:49 Urine WBC 0-5 /hpf (0-5) 10/26/24 20:49 Ur Squamous Epith Cells 6-10 /hpf (0-5) 10/26/24 20:49 Amorphous Sediment Not Reportable 10/26/24 20:49 Urine Bacteria Trace /hpf (NONE) 10/26/24 20:49 Hyaline Casts 0.81 /lpf 10/26/24 20:49 All radiology interpretation(s) finalized by discharge Discharge Plan Discharge Patient Disposition: Xfer Short-Term Hosp Clinical Impression: Ureterolithiasis Condition: Stable Referrals: Linwood,MIKEY, SOFTWARE DEVELOPMENT LEADER [Primary Care Provider] - Print Language: Citizen Of [place] Coding Level of Care Code ED Supervisor Bonding for Jamila Forte
[2024-10-26 21:04] LABS: Bilirubin Urine Negative (Negative); Blood Urine Negative (Negative); Glucose Urine UA Negative (Normal); Ketones Urine Negative (Negative); Leukocyte Esterase Urine Trace (Negative); Nitrate Urine Negative (Negative); Protein Urine Negative (Negative); Specific Gravity, Urine 1.017 (1.005-1.030); Urine Appearance Turbid (CLEAR); Urine Color Yellow (Yellow)
[2024-10-26 21:08] LABS: Add Urine Microscopic? YES; Bacteria Urine Trace /hpf; Hyaline Casts Urine 0.81 /lpf; RBC Urine 0-2 /hpf (0-2); WBC Urine 0-5 /hpf (0-5)
[2024-10-26 21:11] LABS: Alanine Aminotransferase 22 U/L (0-33); Albumin Level 4.4 g/dL (3.5-5.2); Alkaline Phosphatase 76 U/L (35-105); Anion Gap 15.8 (5-19); Aspartate Amino Transferase 22 U/L (0-32); Blood Urea Nitrogen 21 mg/dL (8-23); C Reactive Protein 7.3 mg/L (0.0-4.9); Calcium 9.8 mg/dL (8.5-10.5); Carbon Dioxide 28 mmol/L (22-29); Chloride 103 mmol/L (98-107); Creatinine Clr Calc Pharmacy 89.9402; Globulin 2.6 g/dL (1.3-4.6); Glucose 140 mg/dL (65-115); Lipase 48 U/L (13-60); Osmolality Calculated 301 mOsm/kg (285-295); Potassium 3.8 mmol/L (3.5-5.1); Sodium 143 mmol/L (136-145); Total Bilirubin 0.4 mg/dL (0.15-1.2)
[2024-10-26 21:12] LABS: Add Urine Culture? No
[2024-10-26] MEDS: morphine 4 mg/mL SDV 1 mL IVP ×2 (21:17→22:59)
[2024-10-26] MEDS: ondansetron 2 mg/ML SDV 2 mL 4 MG IVP (21:17)
[2024-10-26] MEDS: lidocaine 2% viscous 15 ML, aluminum-mag hydrox-simethicon 30 ML, sucralfate oral liq 1 GM PO (23:57)
[2024-10-27] VITALS: BP 154/79; PULSE 81; O2SAT 92
[2024-10-27 00:30] VITALS: BP 186/109; PULSE 81; O2SAT 92
[2024-10-27 02:34] VITALS: BP 154/79; PULSE 80; O2SAT 92
== END 2024-10-27 01:00 | disposition short-term general hospital (02) ==
PROVIDERS: Emergency Provider Emergency Medicine; PCP Nurse Practitioner Family
DX: N20.1 Calculus of ureter (principal); J44.9 Chronic obstructive pulmonary disease, unspecified; E78.2 Mixed hyperlipidemia; E11.9 Type 2 diabetes mellitus without complications; I10 Essential (primary) hypertension
CPT/HCPCS: 36415; 74176; 80053; 81001; 83690; 85025; 86140; 96374; 96375; 96376; 99285; J2270; J2405; J9999

== ENCOUNTER → 2025-06-04 15:51 | Outpatient (BNVA) | payer MEDICARE, OTHER, SELFPAY | PROVIDERS: PCP Nurse Practitioner Family; Visit Provider Nurse Practitioner Family | DX: E78.2 Mixed hyperlipidemia (principal); M67.911 Unspecified disorder of synovium and tendon, right shoulder; I10 Essential (primary) hypertension; E11.9 Type 2 diabetes mellitus without complications; E55.9 Vitamin D deficiency, unspecified | CPT/HCPCS: 73030; 80053; 80061; 81003; 82306; 82607; 82728; 83036; 83550; 83735; 84443; 85025 ==

== ENCOUNTER 2025-06-23 15:43 | Outpatient (CLI) | payer MEDICARE, OTHER, SELFPAY ==
--- NOTE | 2025-06-23 16:00 | CT_ITS ---
WS: [id number] CT RIGHT SHOULDER, NONCONTRAST HISTORY: RIGHT shoulder pain for 1 month. No injury. Technique: All CT scans at [facility] use at least one of these dose optimization techniques: automated exposure control; mA and/or kV adjustment per patient size (includes targeted exams where dose is matched to clinical indication); or iterative reconstruction. DLP: 838.97 mGy.cm COMPARISON: Radiograph 06/04/2025 No acute fractures or dislocations. Mild narrowing of the AC joint. There is a small amount of degenerative air at the AC joint and also in the distal clavicle. Mild hypertrophic osteophytes and synovial thickening. 5 mm calcific or osseous fragment adjacent to the acromion. Normal position of the humeral head and the glenoid. Advanced atrophy of the supraspinatus muscle. This is often related to the supraspinatus tendon tear. No soft tissue masses. Visualized RIGHT lung is unremarkable. CT/CT shoulder RT wo con* [id number] IMPRESSION: 1. Mild narrowing of the AC joint with degenerative changes. 2. Advanced atrophy of the supraspinatus muscle. Typically this is noted with the supraspinatus tendon tear. Recommend MRI RIGHT shoulder for further evaluat ion. 3. No fracture.
== END 2025-06-23 15:44 | disposition home or self-care (01) ==
LOC: RAD 15:45
PROVIDERS: PCP Nurse Practitioner Family; Visit Provider Nurse Practitioner Family
DX: M19.011 Primary osteoarthritis, right shoulder (principal); M67.911 Unspecified disorder of synovium and tendon, right shoulder; M62.511 Muscle wasting and atrophy, not elsewhere classified, right shoulder
CPT/HCPCS: 73200